=== PATIENT | male | born 1970 | race Caucasian/White ===

== ENCOUNTER 2020-06-13 15:47 | Inpatient (IN) | payer BC, OTHER ==
[2020-06-13] MEDS: Sodium Chloride 0.9% 10 ML Syringe FLUSH PRN ×2 (16:14→18:58)
[2020-06-13] MEDS ORDERED: Sodium Chloride 0.9% 1,000 ML IV SCH (17:45)
--- NOTE | 2020-06-13 18:03 | CR ---
Chest: 2 views of the chest were obtained. Comparison: Prior chest x-ray of 03/12/11. Patchy areas of increased density throughout both sides of the chest are seen. Heart is enlarged. Upper mediastinum is slightly prominent. Scoliosis is noted within the spine. Bony structures show nothing acute. Impression: 1. Patchy areas of increased density on both sides of the chest. Findings presumably representing diffuse areas of infection, most likely viral in etiology. Diagnostic code #5 Study was dictated in MDT
[2020-06-13] MEDS ORDERED: Iopamidol 755 Mg/ML 100 ML Bottle IVPUSH ONE (18:04)
[2020-06-13] MEDS ORDERED: Sodium Chloride 0.9% 100 ML IV SCH (18:15)
--- NOTE | 2020-06-13 18:59 | EDM.PDOC ---
ED HPI GENERAL MEDICAL PROBLEM - General Chief Complaint: Respiratory Problem Stated Complaint: COVID + Time Seen by Provider: 06/13/20 16:08 Source of Information: Reports: Patient History Limitations: Reports: No Limitations - History of Present Illness INITIAL COMMENTS - FREE TEXT/NARRATIVE: Patient is a 50-year-old male presenting to the emergency department with complaints of a two-week history of cough, congestion, shortness of breath, fever, fatigue, and loss of taste and smell. Patient states symptoms began on 30 May. He was tested for COVID and found out yesterday that he was positive. He has been doing home oxygen monitoring through [employer]. Patient was notified today that his oxygen saturations were low at 84% on room air. He was advised to come to the emergency department. Upon arrival to the emergency department, his oxygen saturation was found to be 77% on room air. Oxygen was applied at 4 L via nasal cannula and he did improve to 92%. Patient has a past medical history significant for high cholesterol, hypertension, and type 2 diabetes on metformin. - Related Data Allergies Allergy/AdvReac Type Severity Reaction Status Date / Time empagliflozin Allergy Mild Itching Verified 06/14/20 03:43 [From Jardiance] Home Meds: Home Meds Aspirin 81 mg PO DAILY 06/13/20 [History] Codeine Phosphate/Guaifenesin [Codeine-Guaifen 10-100 mg/5 ml] 5 ml PO Q4H PRN 06/13/20 [History] LORazepam [Lorazepam] 2 mg PO BEDTIME 06/13/20 [History] Metoprolol Tartrate [Lopressor] 100 mg PO DAILY 06/13/20 [History] Omeprazole 20 mg PO DAILY 06/13/20 [History] lisinopriL [Lisinopril] 10 mg PO DAILY 06/13/20 [History] metFORMIN HCl [Metformin HCl] 2,000 mg PO DAILY 06/13/20 [History] tadalafiL [Cialis] 2.5 mg PO DAILY PRN 06/13/20 [History] Past Medical History HEENT History: Reports: Other (See Below) Other HEENT History: pt wears glasses Cardiovascular History: Reports: High Cholesterol, Hypertension Respiratory History: Reports: Other (See Below) Other Respiratory History: currently has bilateral PNA Endocrine/Metabolic History: Reports: Diabetes, Type II - Infectious Disease History Infectious Disease History: Reports: Chicken Pox Social & Family History - Family History Family Medical History: Noncontributory - Tobacco Use Smoking Status *Q: Never Smoker Second Hand Smoke Exposure: No - Caffeine Use Caffeine Use: Reports: Soda - Recreational Drug Use Recreational Drug Use: No ED ROS GENERAL - Review of Systems Review Of Systems: See Below Constitutional: Reports: Fever, Chills, Weakness, Fatigue, Decreased Appetite HEENT: Reports: No Symptoms Respiratory: Reports: Shortness of Breath, Cough Cardiovascular: Reports: Dyspnea on Exertion. Denies: Chest Pain, Lightheadedne ss Endocrine: Reports: No Symptoms GI/Abdominal: Reports: No Symptoms. Denies: Abdominal Pain, Nausea, Vomiting : Reports: No Symptoms Musculoskeletal: Reports: Other (generalized body aches) Skin: Reports: No Symptoms Neurological: Reports: No Symptoms Psychiatric: Reports: No Symptoms Hematologic/Lymphatic: Reports: No Symptoms Immunologic: Reports: No Symptoms ED EXAM, GENERAL - Physical Exam Exam: See Below Exam Limited By: No Limitations General Appearance: Alert, WD/WN, No Apparent Distress Respiratory/Chest: No Respiratory Distress, Decreased Breath Sounds, Crackles (Throughout bilateral lungs), Wheezing (Intermittent throughout) Cardiovascular: Normal Peripheral Pulses, Regular Rate, Rhythm, No Edema, No Gallop, No JVD, No Murmur, No Rub Extremities: Normal Inspection, Normal Range of Motion, Non-Tender, Normal Capillary Refill, No Pedal Edema Neurological: Alert, Oriented, CN II-XII Intact, Normal Cognition, Normal Gait, Normal Reflexes, No Motor/Sensory Deficits Psychiatric: Normal Affect, Normal Mood Skin Exam: Warm, Dry, Intact, Normal Color, No Rash Course - Vital Signs Last Recorded V/S: Last Vital Signs Temp 98.4 F 06/14/20 04:24 Pulse 95 06/14/20 04:24 Resp 20 06/14/20 04:24 BP 151/89 H 06/14/20 04:24 Pulse Ox 91 L 06/14/20 06:15 - Orders/Labs/Meds Orders: Active Orders 24 hr Category Date Time Status CULTURE BLOOD [BC] Stat Lab 06/13/20 17:10 Received CULTURE BLOOD [BC] Stat Lab 06/13/20 17:30 Received Sodium Chloride 0.9% [Saline Flush] Med 06/13/20 16:08 Active 10 ml FLUSH ASDIRECTED PRN Blood Culture x2 Reflex Set [OM.PC] Stat Ot 06/13/20 16:11 Ordered Peripheral IV Insertion Adult [OM.PC] Stat Ot 06/13/20 16:08 Ordered Medication Orders Acetaminophen (Tylenol) 650 mg PO Q4H PRN PRN Reason: Pain (Mild 1-3)/fever Dexamethasone (Dexamethasone) 6 mg IVPUSH Q24H [facility] Stop: 06/22/20 20:01 Last Admin: 06/13/20 22:17 Dose: 6 mg Documented by: JOVAN Enoxaparin Sodium (Lovenox) 40 mg SUBCUT DAILY [facility] Last Admin: 06/14/20 11:13 Dose: 40 mg Documented by: BEN REMDESIVIR (EUA) 100 mg/ (Sodium Chloride) 100 mls @ 100 mls/hr IV Q24H [facility] Stop: 06/17/20 22:59 Tocilizumab 800 mg/ Sodium (Chloride) 100 mls @ 100 mls/hr IV Q12H [facility] Stop: 06/14/20 12:29 Last Admin: 06/14/20 11:14 Dose: 100 mls/hr Documented by: Infusion: 06/14/20 01:19 Dose: 100 mls/hr Documented by: Admin: 06/14/20 00:19 Dose: 100 mls/hr Documented by: JOVAN Sodium Chloride (Normal Saline) 1,000 mls @ 100 mls/hr IV ASDIRECTED [facility] Insulin Glargine (Lantus) 5 unit SUBCUT BEDTIME [facility] Last Admin: 06/13/20 22:19 Dose: 5 units Documented by: JOVAN Ondansetron HCl (Zofran Odt) 4 mg PO Q6H PRN PRN Reason: nausea, able to take PO Ondansetron HCl (Zofran) 4 mg IV Q6H PRN PRN Reason: Nausea/Vomiting Sodium Chloride (Saline Flush) 10 ml FLUSH ASDIRECTED PRN PRN Reason: Keep Vein Open Last Admin: 06/13/20 18:58 Dose: 10 ml Documented by: Admin: 06/13/20 16:14 Dose: 10 ml Documented by: RIGO Labs: Laboratory Tests 06/13/20 06/13/20 06/13/20 Range/Units 16:00 16:00 16:00 WBC 9.35 H (4.23-9.07) K/mm3 RBC 4.13 L (4.63-6.08) M/mm3 Hgb 12.1 L (13.7-17.5) gm/dl Hct 36.6 L (40.1-51.0) % MCV 88.6 (79.0-92.2) fl MCH 29.3 (25.7-32.2) pg MCHC 33.1 (32.2-35.5) g/dl RDW Std Deviation 42.1 (35.1-43.9) fL Plt Count 335 (163-337) K/mm3 MPV 9.9 (9.4-12.3) fl Neut % (Auto) 89.1 H (34.0-67.9) % Lymph % (Auto) 5.8 L (21.8-53.1) % [place] % (Auto) 4.8 L (5.3-12.2) % Eos % (Auto) 0 L (0.8-7.0) Baso % (Auto) 0.2 (0.1-1.2) % Neut # (Auto) 8.33 H (1.78-5.38) K/mm3 Lymph # (Auto) 0.54 L (1.32-3.57) K/mm3 [place] # (Auto) 0.45 (0.30-0.82) K/mm3 Eos # (Auto) 0.00 L (0.04-0.54) K/mm3 Baso # (Auto) 0.02 (0.01-0.08) K/mm3 Manual Slide Review Abnormal smear Percent Retic (0.51-1.81) % D-Dimer, Quantitative 1.96 H (0.19-0.50) mg/L Puncture Site ABG pH (7.35-7.45) ABG pCO2 (35.0-45.0) mmHg ABG pO2 (80.0-100.0) mmHg ABG HCO3 (22.0-26.0) meq/L ABG O2 Saturation (96.0-97.0) % ABG Base Excess (-2-2.0) [place] Test A-a Gradient mmHg O2 Delivery Device Oxygen Flow Rate FiO2 (21.00-100.00) % Sodium 130 L (136-145) mEq/L Potassium 3.6 (3.5-5.1) mEq/L Chloride 91 L (98-107) mEq/L Carbon Dioxide 27 (21-32) mEq/L Anion Gap 15.6 H (5-15) BUN 7 (7-18) mg/dL Creatinine 1.1 (0.7-1.3) mg/dL Est Cr Clr Drug Dosing 86.52 mL/min Estimated GFR (MDRD) > 60 (>60) mL/min BUN/Creatinine Ratio 6.4 L (14-18) Glucose 311 H (74-106) mg/dL Hemoglobin A1c (4.50-6.20) % Lactic Acid (0.4-2.0) mmol/L Calcium 9.1 (8.5-10.1) mg/dL Phosphorus (2.6-4.7) mg/dL Magnesium (1.8-2.4) mg/dl Ferritin (26-388) ng/ml Total Bilirubin 0.6 (0.2-1.0) mg/dL AST 32 (15-37) U/L ALT 36 (16-63) U/L Alkaline Phosphatase 69 (46-116) U/L Lactate Dehydrogenase 464 H (85-227) U/L Troponin I < 0.017 (0.00-0.056) ng/mL C-Reactive Protein (<1.0) mg/dL NT-Pro-B Natriuret Pep (0-125) pg/mL Total Protein 7.6 (6.4-8.2) g/dl Albumin 2.5 L (3.4-5.0) g/dl Globulin 5.1 gm/dL Albumin/Globulin Ratio 0.5 L (1-2) Vitamin B12 (193-986) pg/ml Folate (8.6-58.9) ng/mL Procalcitonin (<0.10) ng/mL Salicylates (2.8-20) mg/dL Acetaminophen (10-30) ug/mL Ketones (0.0-0.3) mM 06/13/20 06/13/20 06/13/20 Range/Units 16:00 16:00 16:00 WBC (4.23-9.07) K/mm3 RBC (4.63-6.08) M/mm3 Hgb (13.7-17.5) gm/dl Hct (40.1-51.0) % MCV (79.0-92.2) fl MCH (25.7-32.2) pg MCHC (32.2-35.5) g/dl RDW Std Deviation (35.1-43.9) fL Plt Count (163-337) K/mm3 MPV (9.4-12.3) fl Neut % (Auto) (34.0-67.9) % Lymph % (Auto) (21.8-53.1) % [place] % (Auto) (5.3-12.2) % Eos % (Auto) (0.8-7.0) Baso % (Auto) (0.1-1.2) % Neut # (Auto) (1.78-5.38) K/mm3 Lymph # (Auto) (1.32-3.57) K/mm3 [place] # (Auto) (0.30-0.82) K/mm3 Eos # (Auto) (0.04-0.54) K/mm3 Baso # (Auto) (0.01-0.08) K/mm3 Manual Slide Review Percent Retic (0.51-1.81) % D-Dimer, Quantitative (0.19-0.50) mg/L Puncture Site ABG pH (7.35-7.45) ABG pCO2 (35.0-45.0) mmHg ABG pO2 (80.0-100.0) mmHg ABG HCO3 (22.0-26.0) meq/L ABG O2 Saturation (96.0-97.0) % ABG Base Excess (-2-2.0) [place] Test A-a Gradient mmHg O2 Delivery Device Oxygen Flow Rate FiO2 (21.00-100.00) % Sodium (136-145) mEq/L Potassium (3.5-5.1) mEq/L Chloride (98-107) mEq/L Carbon Dioxide (21-32) mEq/L Anion Gap (5-15) BUN (7-18) mg/dL Creatinine (0.7-1.3) mg/dL Est Cr Clr Drug Dosing mL/min Estimated GFR (MDRD) (>60) mL/min BUN/Creatinine Ratio (14-18) Glucose (74-106) mg/dL Hemoglobin A1c (4.50-6.20) % Lactic Acid (0.4-2.0) mmol/L Calcium (8.5-10.1) mg/dL Phosphorus (2.6-4.7) mg/dL Magnesium (1.8-2.4) mg/dl Ferritin 464 H (26-388) ng/ml Total Bilirubin (0.2-1.0) mg/dL AST (15-37) U/L ALT (16-63) U/L Alkaline Phosphatase (46-116) U/L Lactate Dehydrogenase (85-227) U/L Troponin I (0.00-0.056) ng/mL C-Reactive Protein (<1.0) mg/dL NT-Pro-B Natriuret Pep 67 (0-125) pg/mL Total Protein (6.4-8.2) g/dl Albumin (3.4-5.0) g/dl Globulin gm/dL Albumin/Globulin Ratio (1-2) Vitamin B12 (193-986) pg/ml Folate (8.6-58.9) ng/mL Procalcitonin 0.65 H (<0.10) ng/mL Salicylates (2.8-20) mg/dL Acetaminophen (10-30) ug/mL Ketones (0.0-0.3) mM 06/13/20 06/13/20 06/13/20 Range/Units 16:00 16:00 16:00 WBC (4.23-9.07) K/mm3 RBC (4.63-6.08) M/mm3 Hgb (13.7-17.5) gm/dl Hct (40.1-51.0) % MCV (79.0-92.2) fl MCH (25.7-32.2) pg MCHC (32.2-35.5) g/dl RDW Std Deviation (35.1-43.9) fL Plt Count (163-337) K/mm3 MPV (9.4-12.3) fl Neut % (Auto) (34.0-67.9) % Lymph % (Auto) (21.8-53.1) % [place] % (Auto) (5.3-12.2) % Eos % (Auto) (0.8-7.0) Baso % (Auto) (0.1-1.2) % Neut # (Auto) (1.78-5.38) K/mm3 Lymph # (Auto) (1.32-3.57) K/mm3 [place] # (Auto) (0.30-0.82) K/mm3 Eos # (Auto) (0.04-0.54) K/mm3 Baso # (Auto) (0.01-0.08) K/mm3 Manual Slide Review Percent Retic 0.56 (0.51-1.81) % D-Dimer, Quantitative (0.19-0.50) mg/L Puncture Site ABG pH (7.35-7.45) ABG pCO2 (35.0-45.0) mmHg ABG pO2 (80.0-100.0) mmHg ABG HCO3 (22.0-26.0) meq/L ABG O2 Saturation (96.0-97.0) % ABG Base Excess (-2-2.0) [place] Test A-a Gradient mmHg O2 Delivery Device Oxygen Flow Rate FiO2 (21.00-100.00) % Sodium (136-145) mEq/L Potassium (3.5-5.1) mEq/L Chloride (98-107) mEq/L Carbon Dioxide (21-32) mEq/L Anion Gap (5-15) BUN (7-18) mg/dL Creatinine (0.7-1.3) mg/dL Est Cr Clr Drug Dosing mL/min Estimated GFR (MDRD) (>60) mL/min BUN/Creatinine Ratio (14-18) Glucose (74-106) mg/dL Hemoglobin A1c (4.50-6.20) % Lactic Acid (0.4-2.0) mmol/L Calcium (8.5-10.1) mg/dL Phosphorus 1.8 L (2.6-4.7) mg/dL Magnesium 2.2 (1.8-2.4) mg/dl Ferritin (26-388) ng/ml Total Bilirubin (0.2-1.0) mg/dL AST (15-37) U/L ALT (16-63) U/L Alkaline Phosphatase (46-116) U/L Lactate Dehydrogenase (85-227) U/L Troponin I (0.00-0.056) ng/mL C-Reactive Protein (<1.0) mg/dL NT-Pro-B Natriuret Pep (0-125) pg/mL Total Protein (6.4-8.2) g/dl Albumin (3.4-5.0) g/dl Globulin gm/dL Albumin/Globulin Ratio (1-2) Vitamin B12 501 (193-986) pg/ml Folate 18.6 (8.6-58.9) ng/mL Procalcitonin (<0.10) ng/mL Salicylates (2.8-20) mg/dL Acetaminophen (10-30) ug/mL Ketones (0.0-0.3) mM 06/13/20 06/13/20 06/13/20 Range/Units 16:00 16:00 16:00 WBC (4.23-9.07) K/mm3 RBC (4.63-6.08) M/mm3 Hgb (13.7-17.5) gm/dl Hct (40.1-51.0) % MCV (79.0-92.2) fl MCH (25.7-32.2) pg MCHC (32.2-35.5) g/dl RDW Std Deviation (35.1-43.9) fL Plt Count (163-337) K/mm3 MPV (9.4-12.3) fl Neut % (Auto) (34.0-67.9) % Lymph % (Auto) (21.8-53.1) % [place] % (Auto) (5.3-12.2) % Eos % (Auto) (0.8-7.0) Baso % (Auto) (0.1-1.2) % Neut # (Auto) (1.78-5.38) K/mm3 Lymph # (Auto) (1.32-3.57) K/mm3 [place] # (Auto) (0.30-0.82) K/mm3 Eos # (Auto) (0.04-0.54) K/mm3 Baso # (Auto) (0.01-0.08) K/mm3 Manual Slide Review Percent Retic (0.51-1.81) % D-Dimer, Quantitative (0.19-0.50) mg/L Puncture Site ABG pH (7.35-7.45) ABG pCO2 (35.0-45.0) mmHg ABG pO2 (80.0-100.0) mmHg ABG HCO3 (22.0-26.0) meq/L ABG O2 Saturation (96.0-97.0) % ABG Base Excess (-2-2.0) [place] Test A-a Gradient mmHg O2 Delivery Device Oxygen Flow Rate FiO2 (21.00-100.00) % Sodium (136-145) mEq/L Potassium (3.5-5.1) mEq/L Chloride (98-107) mEq/L Carbon Dioxide (21-32) mEq/L Anion Gap (5-15) BUN (7-18) mg/dL Creatinine (0.7-1.3) mg/dL Est Cr Clr Drug Dosing mL/min Estimated GFR (MDRD) (>60) mL/min BUN/Creatinine Ratio (14-18) Glucose (74-106) mg/dL Hemoglobin A1c (4.50-6.20) % Lactic Acid (0.4-2.0) mmol/L Calcium (8.5-10.1) mg/dL Phosphorus (2.6-4.7) mg/dL Magnesium (1.8-2.4) mg/dl Ferritin (26-388) ng/ml Total Bilirubin (0.2-1.0) mg/dL AST (15-37) U/L ALT (16-63) U/L Alkaline Phosphatase (46-116) U/L Lactate Dehydrogenase (85-227) U/L Troponin I (0.00-0.056) ng/mL C-Reactive Protein (<1.0) mg/dL NT-Pro-B Natriuret Pep (0-125) pg/mL Total Protein (6.4-8.2) g/dl Albumin (3.4-5.0) g/dl Globulin gm/dL Albumin/Globulin Ratio (1-2) Vitamin B12 (193-986) pg/ml Folate (8.6-58.9) ng/mL Procalcitonin (<0.10) ng/mL Salicylates 1.0 L (2.8-20) mg/dL Acetaminophen 0 L (10-30) ug/mL Ketones 0.29 (0.0-0.3) mM 06/13/20 06/13/20 06/13/20 Range/Units 16:20 17:10 17:10 WBC (4.23-9.07) K/mm3 RBC (4.63-6.08) M/mm3 Hgb (13.7-17.5) gm/dl Hct (40.1-51.0) % MCV (79.0-92.2) fl MCH (25.7-32.2) pg MCHC (32.2-35.5) g/dl RDW Std Deviation (35.1-43.9) fL Plt Count (163-337) K/mm3 MPV (9.4-12.3) fl Neut % (Auto) (34.0-67.9) % Lymph % (Auto) (21.8-53.1) % [place] % (Auto) (5.3-12.2) % Eos % (Auto) (0.8-7.0) Baso % (Auto) (0.1-1.2) % Neut # (Auto) (1.78-5.38) K/mm3 Lymph # (Auto) (1.32-3.57) K/mm3 [place] # (Auto) (0.30-0.82) K/mm3 Eos # (Auto) (0.04-0.54) K/mm3 Baso # (Auto) (0.01-0.08) K/mm3 Manual Slide Review Percent Retic (0.51-1.81) % D-Dimer, Quantitative (0.19-0.50) mg/L Puncture Site Rt radial ABG pH 7.51 H (7.35-7.45) ABG pCO2 34.3 L (35.0-45.0) mmHg ABG pO2 70.0 L (80.0-100.0) mmHg ABG HCO3 27.1 H (22.0-26.0) meq/L ABG O2 Saturation 91.6 L (96.0-97.0) % ABG Base Excess 4.4 H (-2-2.0) [place] Test Positive A-a Gradient 144 mmHg O2 Delivery Device Nasal cannula Oxygen Flow Rate 4.0 FiO2 36.00 (21.00-100.00) % Sodium (136-145) mEq/L Potassium (3.5-5.1) mEq/L Chloride (98-107) mEq/L Carbon Dioxide (21-32) mEq/L Anion Gap (5-15) BUN (7-18) mg/dL Creatinine (0.7-1.3) mg/dL Est Cr Clr Drug Dosing mL/min Estimated GFR (MDRD) (>60) mL/min BUN/Creatinine Ratio (14-18) Glucose (74-106) mg/dL Hemoglobin A1c (4.50-6.20) % Lactic Acid 1.7 (0.4-2.0) mmol/L Calcium (8.5-10.1) mg/dL Phosphorus (2.6-4.7) mg/dL Magnesium (1.8-2.4) mg/dl Ferritin (26-388) ng/ml Total Bilirubin (0.2-1.0) mg/dL AST (15-37) U/L ALT (16-63) U/L Alkaline Phosphatase (46-116) U/L Lactate Dehydrogenase (85-227) U/L Troponin I (0.00-0.056) ng/mL C-Reactive Protein 42.2 H* (<1.0) mg/dL NT-Pro-B Natriuret Pep (0-125) pg/mL Total Protein (6.4-8.2) g/dl Albumin (3.4-5.0) g/dl Globulin gm/dL Albumin/Globulin Ratio (1-2) Vitamin B12 (193-986) pg/ml Folate (8.6-58.9) ng/mL Procalcitonin (<0.10) ng/mL Salicylates (2.8-20) mg/dL Acetaminophen (10-30) ug/mL Ketones (0.0-0.3) mM 06/13/20 Range/Units 17:18 WBC (4.23-9.07) K/mm3 RBC (4.63-6.08) M/mm3 Hgb (13.7-17.5) gm/dl Hct (40.1-51.0) % MCV (79.0-92.2) fl MCH (25.7-32.2) pg MCHC (32.2-35.5) g/dl RDW Std Deviation (35.1-43.9) fL Plt Count (163-337) K/mm3 MPV (9.4-12.3) fl Neut % (Auto) (34.0-67.9) % Lymph % (Auto) (21.8-53.1) % [place] % (Auto) (5.3-12.2) % Eos % (Auto) (0.8-7.0) Baso % (Auto) (0.1-1.2) % Neut # (Auto) (1.78-5.38) K/mm3 Lymph # (Auto) (1.32-3.57) K/mm3 [place] # (Auto) (0.30-0.82) K/mm3 Eos # (Auto) (0.04-0.54) K/mm3 Baso # (Auto) (0.01-0.08) K/mm3 Manual Slide Review Percent Retic (0.51-1.81) % D-Dimer, Quantitative (0.19-0.50) mg/L Puncture Site ABG pH (7.35-7.45) ABG pCO2 (35.0-45.0) mmHg ABG pO2 (80.0-100.0) mmHg ABG HCO3 (22.0-26.0) meq/L ABG O2 Saturation (96.0-97.0) % ABG Base Excess (-2-2.0) [place] Test A-a Gradient mmHg O2 Delivery Device Oxygen Flow Rate FiO2 (21.00-100.00) % Sodium (136-145) mEq/L Potassium (3.5-5.1) mEq/L Chloride (98-107) mEq/L Carbon Dioxide (21-32) mEq/L Anion Gap (5-15) BUN (7-18) mg/dL Creatinine (0.7-1.3) mg/dL Est Cr Clr Drug Dosing mL/min Estimated GFR (MDRD) (>60) mL/min BUN/Creatinine Ratio (14-18) Glucose (74-106) mg/dL Hemoglobin A1c 8.50 H (4.50-6.20) % Lactic Acid (0.4-2.0) mmol/L Calcium (8.5-10.1) mg/dL Phosphorus (2.6-4.7) mg/dL Magnesium (1.8-2.4) mg/dl Ferritin (26-388) ng/ml Total Bilirubin (0.2-1.0) mg/dL AST (15-37) U/L ALT (16-63) U/L Alkaline Phosphatase (46-116) U/L Lactate Dehydrogenase (85-227) U/L Troponin I (0.00-0.056) ng/mL C-Reactive Protein (<1.0) mg/dL NT-Pro-B Natriuret Pep (0-125) pg/mL Total Protein (6.4-8.2) g/dl Albumin (3.4-5.0) g/dl Globulin gm/dL Albumin/Globulin Ratio (1-2) Vitamin B12 (193-986) pg/ml Folate (8.6-58.9) ng/mL Procalcitonin (<0.10) ng/mL Salicylates (2.8-20) mg/dL Acetaminophen (10-30) ug/mL Ketones (0.0-0.3) mM Meds: Medications Generic Name Dose Route Start Last Admin Trade Name Freq PRN Reason Stop Dose Admin Acetaminophen 650 mg 06/13/20 19:26 Tylenol PO Q4H PRN Pain (Mild 1-3)/fever Dexamethasone 6 mg 06/13/20 20:00 06/13/20 22:17 Dexamethasone IVPUSH 06/22/20 20:01 6 mg Q24H MARLINE Administration Enoxaparin Sodium 40 mg 06/14/20 09:00 06/14/20 11:13 Lovenox SUBCUT 40 mg DAILY MARLINE Administration REMDESIVIR (EUA) 100 mg/ 100 mls @ 100 mls/hr 06/14/20 22:00 Sodium Chloride IV 06/17/20 22:59 Q24H MARLINE Tocilizumab 800 mg/ Sodium 100 mls @ 100 mls/hr 06/13/20 23:30 06/14/20 11:14 Chloride IV 06/14/20 12:29 100 mls/hr Q12H MARLINE Administration Sodium Chloride 1,000 mls @ 100 mls/hr 06/14/20 07:45 Normal Saline IV ASDIRECTED MARLINE Insulin Glargine 5 unit 06/13/20 21:00 06/13/20 22:19 Lantus SUBCUT 5 units BEDTIME MARLINE Administration Ondansetron HCl 4 mg 06/13/20 19:26 Zofran Odt PO Q6H PRN nausea, able to take PO Ondansetron HCl 4 mg 06/13/20 19:26 Zofran IV Q6H PRN Nausea/Vomiting Sodium Chloride 10 ml 06/13/20 16:08 06/13/20 18:58 Saline Flush FLUSH 10 ml ASDIRECTED PRN Administration Keep Vein Open Discontinued Medications Generic Name Dose Route Start Last Admin Trade Name Freq PRN Reason Stop Dose Admin Albuterol Confirm 06/14/20 06:05 06/14/20 06:21 Proventil Neb Soln Administered 06/14/20 06:06 2.5 mg Dose Administration 2.5 mg .ROUTE .STK-MED ONE Sodium Chloride 1,000 mls @ 100 mls/hr 06/13/20 17:45 06/13/20 20:10 Normal Saline IV 70 mls/hr ASDIRECTED MARLINE Infusion Sodium Chloride 100 mls @ 70 mls/hr 06/13/20 18:15 Normal Saline IV ASDIRECTED MARLINE REMDESIVIR (EUA) 200 mg/ 250 mls @ 250 mls/hr 06/13/20 19:37 06/13/20 22:16 Sodium Chloride IV 06/13/20 19:38 250 mls/hr ONETIME STA Administration Iopamidol 100 ml 06/13/20 18:04 06/13/20 18:58 Isovue-370 (76%) IVPUSH 06/13/20 18:05 100 ml ONETIME ONE Administration Sodium Chloride 4 ml 06/14/20 06:00 06/14/20 06:11 Sodium Chloride 3% NEB 06/14/20 06:01 4 ml ONETIME ONE Administration Tocilizumab 800 mg 06/13/20 21:00 Actemra IV 06/14/20 09:01 Q12HR MARLINE - Re-Assessments/Exams Free Text/Narrative Re-Assessment/Exam: 06/13/20 1800 Hematology was significant for a WBC minimally elevated at 9.35, hemoglobin 12.1, d-dimer 1.96, sodium 130 chloride 91, gap 15.6, glucose 311, phosphorus 1.8, ferritins 464, LDH 464, CRP 42.2. ABGs on 4 L of oxygen by nasal cannula showed a pH of 7.51, CO2 34.3, O2 70, bicarb 27.1, total oxygen saturation 91.6 with a base excess of 4.4. I have ordered a CT angiogram of the chest. Once these results are available, I will call and speak with hospitalist, Dr. Rossi to discuss admission. 06/13/201909 CT angiogram of the chest showed diffuse patchy areas of consolidation within both lungs compatible with viral pneumonia. There is no evidence of pulmonary embolism. Discussed case with hospitalist, Dr. Rossi, and she has accepted the patient for admission. Departure - Departure Time of Disposition: 19:10 Disposition: Admitted As Inpatient 67 Clinical Impression: Acute hypoxemic respiratory failure due to COVID-19 - Discharge Information Sepsis Event Note (ED) - Evaluation Sepsis Screening Result: No Definite Risk - My Orders Last 24 Hours: My Active Orders 06/13/20 16:08 Sodium Chloride 0.9% [Saline Flush] 10 ml FLUSH ASDIRECTED PRN Peripheral IV Insertion Adult [OM.PC] Stat 06/13/20 16:11 Blood Culture x2 Reflex Set [OM.PC] Stat 06/13/20 17:10 CULTURE BLOOD [BC] Stat 06/13/20 17:30 CULTURE BLOOD [BC] Stat - Assessment/Plan Last 24 Hours: My Active Orders 06/13/20 16:08 Sodium Chloride 0.9% [Saline Flush] 10 ml FLUSH ASDIRECTED PRN Peripheral IV Insertion Adult [OM.PC] Stat 06/13/20 16:11 Blood Culture x2 Reflex Set [OM.PC] Stat 06/13/20 17:10 CULTURE BLOOD [BC] Stat 06/13/20 17:30 CULTURE BLOOD [BC] Stat
--- NOTE | 2020-06-13 19:01 | CT ---
CT chest Technique: Multiple axial sections of the chest were obtained. Study performed as a pulmonary angiogram protocol. Reconstructed coronal and sagittal images were obtained. Findings: Pulmonary arteries are well-opacified. No filling defects are seen to indicate pulmonary embolism. Patchy areas of consolidation are seen throughout both lungs. Findings are compatible with viral pneumonia. No pleural effusions are seen. Moderately large hiatal hernia is noted. Mild coronary artery calcification seen. Aorta shows no aneurysm. Mediastinum shows no adenopathy Bone window settings were reviewed. No acute osseous finding is appreciated. Impression: 1. No findings of pulmonary embolism. 2. Diffuse patchy areas of consolidation within both lungs compatible with viral pneumonia. 3. Other nonacute findings as noted above. Diagnostic code #5 Study was dictated in MDT
--- NOTE | 2020-06-13 19:22 | PCM.HP.2 ---
H&P History of Present Illness - General Date of Service: 06/13/20 - History of Present Illness Initial Comments - Free Text/Narative: This is a 50-year old male with past medical history of diabetes and hypertension who was sent to the ED by primary care provider's clinic for hy poxemia. As per patient he started having shortness of breath 2 weeks ago accompanied with decreased appetite, fevers, loss of taste, difficulty sleeping and productive cough of thick clear sputum Once symptoms were not improving, he went to walk-in clinic for evaluation. At that time a CXR was performed and he was diagnosed with pneumonia and sent home with Zpack and PRN inhaler q4h, he was also tested for COVID. Called yesterday and told he was positive for COVID, home pulse oximetry sent. He was called today and told his oxygen level was too low and told to come to the ED for further evaluation. - Related Data Allergies/Adverse Reactions: Allergies Allergy/AdvReac Type Severity Reaction Status Date / Time empagliflozin Allergy Severe Itching Verified 06/13/20 20:11 [From [facility]cial] Home Medications: Home Meds Aspirin 81 mg PO DAILY 06/13/20 [History] Codeine Phosphate/Guaifenesin [Codeine-Guaifen 10-100 mg/5 ml] 5 ml PO Q4H PRN 06/13/20 [History] LORazepam [Lorazepam] 2 mg PO BEDTIME 06/13/20 [History] Metoprolol Tartrate [Lopressor] 100 mg PO DAILY 06/13/20 [History] Omeprazole 20 mg PO DAILY 06/13/20 [History] lisinopriL [Lisinopril] 10 mg PO DAILY 06/13/20 [History] metFORMIN HCl [Metformin HCl] 2,000 mg PO DAILY 06/13/20 [History] tadalafiL [Cialis] 2.5 mg PO DAILY PRN 06/13/20 [History] Past Medical History HEENT History: Reports: Other (See Below) Other HEENT History: pt wears glasses Cardiovascular History: Reports: High Cholesterol, Hypertension Respiratory History: Reports: Other (See Below) Other Respiratory History: currently has bilateral PNA Endocrine/Metabolic History: Reports: Diabetes, Type II - Infectious Disease History Infectious Disease History: Reports: Chicken Pox Social & Family History - Family History Family Medical History: Noncontributory - Tobacco Use Smoking Status *Q: Never Smoker Second Hand Smoke Exposure: No - Caffeine Use Caffeine Use: Reports: Soda - Recreational Drug Use Recreational Drug Use: No H&P Review of Systems - Review of Systems: Review Of Systems: See Below General: Reports: Fever (104 tuesday), Chills, Malaise, Weakness, Fatigue, Diaphoresis, Decreased Appetite HEENT: Reports: Post Nasal Drip, Sinus Congestion, Sore Throat. Denies: Dysphasia, Headaches, Rhinitis Pulmonary: Reports: Shortness of Breath, Wheezing, Pleuritic Chest Pain, Cough, Sputum (thick clear) Cardiovascular: Reports: Palpitations, Dyspnea on Exertion, Orthopnea, PND, L ightheadedness, Syncope (near syncope when leaving the clinic). Denies: Chest Pain, Edema Gastrointestinal: Reports: Anorexia, Decreased Appetite, Distension. Denies: Abdominal Pain, Constipation, Diarrhea, Difficulty Swallowing, Nausea, Vomiting Genitourinary: Denies: Dysuria, Frequency, Burning, Pain, Urgency Musculoskeletal: Denies: Joint Pain, Joint Swelling, Muscle Pain, Muscle Stiffness Skin: Reports: Diaphoresis. Denies: Cyanosis, Jaundice, Mottled, Pallor Psychiatric: Reports: Anxiety. Denies: Depression Exam - Exam Exam: See Below - Vital Signs Vital Signs: Last Vital Signs Temp 101.2 F H 06/13/20 15:52 Pulse 130 H 06/13/20 15:52 Resp 25 H 06/13/20 15:52 BP 143/89 H 06/13/20 15:52 Pulse Ox 77 L 06/13/20 15:52 Weight: 87.543 kg - Exam Quality Assessment: Supplemental Oxygen General: Alert, Oriented, Moderate Distress HEENT: Conjunctiva Clear (injected and erythematous), EOMI, Mucosa Moist & [place], Nares Patent Neck: Supple, Trachea Midline, +2 Carotid Pulse wo Bruit, Full Range of Motion. No: Lymphadenopathy Lungs: Decreased Breath Sounds, Crackles, Wheezing. No: Rales, Rhonchi, Rub, Stridor Cardiovascular: Regular Rate, Regular Rhythm. No: Systolic Murmur, Diastolic Murmur, Rubs, Gallop/S3, Gallop/S4 GI/Abdominal Exam: Normal Bowel Sounds, Soft, Non-Tender, Distended. No: Guarding, Rigid, Rebound Back Exam: Normal Inspection. No: CVA Tenderness (L), CVA Tenderness (R), Paraspinal Tenderness, Vertebral Tenderness Extremities: Normal Inspection, Normal Range of Motion, Non-Tender, No Pedal Edema, Normal Capillary Refill Peripheral Pulses: 2+: Radial (L), Radial (R), Dorsalis Pedis (L), Dorsalis Pedis (R) Skin: Warm, Dry, Intact Neuro Extensive - Mental Status: Alert, Oriented x3, Normal Cognition, Memory Intact Psychiatric: Normal Affect, Normal Mood - Patient Data Result Diagrams: 06/13/20 16:00 06/13/20 16:00 Sepsis Event Note - Evaluation Sepsis Screening Result: No Definite Risk - Problem List (1) Pneumonia due to COVID-19 virus SNOMED Code(s): 200234466 ICD Code: U07.1 - COVID-19; J12.89 - OTHER VIRAL PNEUMONIA Status: Acute Current Visit: Yes (2) Acute hypoxemic respiratory failure due to COVID-19 SNOMED Code(s): 136823704 ICD Code: U07.1 - COVID-19; J96.01 - ACUTE RESPIRATORY FAILURE WITH HYPOXIA Status: Acute Current Visit: Yes (3) Bilateral pneumonia SNOMED Code(s): 165441569 ICD Code: J18.9 - PNEUMONIA, UNSPECIFIED ORGANISM Status: Acute Current Visit: Yes (4) Hypertension SNOMED Code(s): 47685641 ICD Code: I10 - ESSENTIAL (PRIMARY) HYPERTENSION Status: Acute Current Visit: Yes (5) Diabetes mellitus SNOMED Code(s): 33180612 ICD Code: E11.9 - TYPE 2 DIABETES MELLITUS WITHOUT COMPLICATIONS Status: Acute Current Visit: Yes (6) Dyslipidemia SNOMED Code(s): 688557681 ICD Code: E78.5 - HYPERLIPIDEMIA, UNSPECIFIED Status: Acute Current Visit: Yes (7) Fever due to COVID-19 SNOMED Code(s): 316322540 ICD Code: U07.1 - COVID-19; R50.9 - FEVER, UNSPECIFIED Status: Acute Current Visit: Yes (8) Normocytic normochromic anemia SNOMED Code(s): 81732282 ICD Code: D64.9 - ANEMIA, UNSPECIFIED Status: Acute Current Visit: Yes (9) Hyponatremia SNOMED Code(s): 78227187 ICD Code: E87.1 - HYPO-OSMOLALITY AND HYPONATREMIA Status: Acute Current Visit: Yes (10) High anion gap metabolic acidosis SNOMED Code(s): 76276135 ICD Code: E87.2 - ACIDOSIS Status: Acute Current Visit: Yes (11) Metabolic alkalosis SNOMED Code(s): 4941873 ICD Code: E87.3 - ALKALOSIS Status: Acute Current Visit: Yes (12) Respiratory alkalosis SNOMED Code(s): 220302236 ICD Code: E87.3 - ALKALOSIS Status: Acute Current Visit: Yes (13) Tachycardia SNOMED Code(s): 1271484 ICD Code: R00.0 - TACHYCARDIA, UNSPECIFIED Status: Acute Current Visit: Yes (14) Tachypnea SNOMED Code(s): 279121970 ICD Code: R06.82 - TACHYPNEA, NOT ELSEWHERE CLASSIFIED Status: Acute Current Visit: Yes (15) Acute respiratory distress syndrome (ARDS) due to 2019 novel coronavirus SNOMED Code(s): 518475704 ICD Code: U07.1 - COVID-19; J80 - ACUTE RESPIRATORY DISTRESS SYNDROME Status: Acute Current Visit: Yes Problem List Initiated/Reviewed/Updated: Yes Assessment/Plan Comment:: ASSESSMENT - Symptoms started 2 weeks ago, shortness of breath - Productive cough of thick clear sputum - Decreased appetite, unable to sleep, - Clinic appointment on Tuesday - CXR + COVID - Diagnosed with pneumonia and discharged on azithromycin and q4h inhaler as needed - Completed azithromycin today and has been using inhaler q4h - COVID reported positive yesterday--> given home pulse oximeter - Called today with pulse oximetry at 80% on RA and referred to ED - Upon admission to ED pulse ox on RA 77% - BP 143/89 (107); HR 130x'; RR 25x'; T 101.2 - Placed on 4L NC - Labs on admission: - CBC: WBC 9.35 (N-89, L-5.8%), Hb 12.1, Hct 36.6, plt 335 - Chemistry: Na 130, K 3.6, Cl 91, CO2 27, BUN 7, Cr 1.1, GFR >60, Glucose 311, Ca 9.1, Mg 2.2, PO4 1.8, AG 15.7 - LFTs: T bili 0.6, AST 32, ALT 36, AP 69, T.prot 7.6, Albumin 2.5 - ABGs: 7.51/34.3/70/27/91.6 @ 36% - PaO2/FiO2: 254, mild ARDS - CT chest with bilateral patchy infiltrates throughout, no PE - On physical exam patient in obvious respiratory distress - Minimal air entry heard only as wheezing PLAN Bilateral pneumonia due to COVID-19 virus Acute hypoxemic respiratory failure due to COVID-19 Respiratory alkalosis Mild ARDS - Start Remdesivir loading dose today, maintenance tomorrow to complete 4 days total - Start daily dexamethasone to complete 10 days - Start Actemra x2 doses every 12 hours - Convalescent plasma in AM - Induced sputum in AM - ABGs in AM - Continue O2 supplementation, goal O2 sat >92% - Albuterol inhaler q4h PRN - Procalcitonin q48h - COVID labs AM - F/U cultures from ED - Keep I/Os balance negative or neutral High anion gap metabolic acidosis Metabolic alkalosis Hyponatremia - Tylenol, salicylates and ketones level ordered - Start NS Normocytic normochromic anemia - Anemia work-up ordered - Goal Hb > 7 Diabetes mellitus, unknown HbA1c - Scheduled Accuchecks - Levemir 5u at bedtime for now - Hypoglycemia protocol - New HbA1c - Hold metformin Hypertension - Continue home lisinopril - PRN hydralazine PROPHYLAXIS DVT-Lovenox GI- continue home omeprazole CODE STATUS: FULL CODE DISPOSITION: Patient will be admitted on O2 supplementation and COVID treatment. LOS will be at least 5 days as per days required of Remdesivir. - Mortality Measure Prognosis:: Good
[2020-06-13] MEDS ORDERED: Ondansetron 4 MG/2 ML SDV IV PRN (19:26)
[2020-06-13] MEDS ORDERED: Acetaminophen 325 MG Tab PO PRN (19:26)
[2020-06-13] MEDS ORDERED: Ondansetron 4 MG Tab.DIS PO PRN (19:26)
[2020-06-13 20:01] LABS: HEMOGLOBIN A1C 8.5 % (4.50-6.20)
[2020-06-13] MEDS ORDERED: Insulin Glarg,Human.Rec.Analog 100 Unit/ML SUBCUT SCH (21:00)
[2020-06-13] MEDS ORDERED: Tocilizumab 400 MG/20 ML SDV IV SCH (21:00)
[2020-06-13] MEDS: Dexamethasone 4 MG/ML SDV IVPUSH SCH (22:17)
[2020-06-14] MEDS ORDERED: Sodium Chloride 3% Inhalation Soln 4 ML Neb NEB ONE (06:00)
[2020-06-14] MEDS ORDERED: Albuterol 0.083% 2.5 MG/3 ML Neb Soln ONE (06:05)
--- NOTE | 2020-06-14 10:26 | PCM.PN ---
- General Info Date of Service: 06/14/20 Subjective Update: Last bowel movement 3 days ago Shortness of breath and cough improved Sputum amount the same No new complaints - Patient Data Vitals - Most Recent: Last Vital Signs Temp 98.4 F 06/14/20 04:24 Pulse 95 06/14/20 04:24 Resp 20 06/14/20 04:24 BP 151/89 H 06/14/20 04:24 Pulse Ox 91 L 06/14/20 06:15 Weight - Most Recent: 87.679 kg - Exam Quality Assessment: Supplemental Oxygen General: Alert, Oriented, Cooperative, Mild Distress HEENT: Pupils Equal, Pupils Reactive, EOMI, Mucous Membr. Moist/[place] Neck: Supple, Trachea Midline. No: Lymphadenopathy Lungs: Decreased Breath Sounds (Significantly decreased in posterior chest, only able to auscultate wheezing ), Wheezing Cardiovascular: Regular Rate, Regular Rhythm. No: Tachycardia, Murmurs, Gallops, Rubs GI/Abdominal Exam: Normal Bowel Sounds, Soft, Non-Tender. No: Distended, Guarding, Rigid, Rebound Back Exam: Normal Inspection. No: CVA Tenderness (L), CVA Tenderness (R), Paraspinal Tenderness, Vertebral Tenderness Extremities: Normal Inspection, Normal Range of Motion, Non-Tender, No Pedal Edema, Normal Capillary Refill Peripheral Pulses: 2+: Radial (L), Radial (R), Dorsalis Pedis (L), Dorsalis Pedis (R) Skin: Warm, Dry Neurological: No New Focal Deficit Psy/Mental Status: Normal Affect, Normal Mood Sepsis Event Note - Evaluation Sepsis Screening Result: Sepsis Risk - Problem List & Annotations (1) Pneumonia due to COVID-19 virus SNOMED Code(s): 373104718 Code(s): U07.1 - COVID-19; J12.89 - OTHER VIRAL PNEUMONIA Status: Acute Current Visit: Yes (2) Acute hypoxemic respiratory failure due to COVID-19 SNOMED Code(s): 006254445 Code(s): U07.1 - COVID-19; J96.01 - ACUTE RESPIRATORY FAILURE WITH HYPOXIA Status: Acute Current Visit: Yes (3) Bilateral pneumonia SNOMED Code(s): 766826238 Code(s): J18.9 - PNEUMONIA, UNSPECIFIED ORGANISM Status: Acute Current Visit: Yes (4) Hypertension SNOMED Code(s): 68865678 Code(s): I10 - ESSENTIAL (PRIMARY) HYPERTENSION Status: Acute Current Visit: Yes (5) Diabetes mellitus SNOMED Code(s): 46183714 Code(s): E11.9 - TYPE 2 DIABETES MELLITUS WITHOUT COMPLICATIONS Status: Acute Current Visit: Yes (6) Dyslipidemia SNOMED Code(s): 757899501 Code(s): E78.5 - HYPERLIPIDEMIA, UNSPECIFIED Status: Acute Current Visit: Yes (7) Fever due to COVID-19 SNOMED Code(s): 191618702 Code(s): U07.1 - COVID-19; R50.9 - FEVER, UNSPECIFIED Status: Acute Current Visit: Yes (8) Normocytic normochromic anemia SNOMED Code(s): 87759083 Code(s): D64.9 - ANEMIA, UNSPECIFIED Status: Acute Current Visit: Yes (9) Hyponatremia SNOMED Code(s): 21975459 Code(s): E87.1 - HYPO-OSMOLALITY AND HYPONATREMIA Status: Acute Current Visit: Yes (10) High anion gap metabolic acidosis SNOMED Code(s): 36105654 Code(s): E87.2 - ACIDOSIS Status: Acute Current Visit: Yes (11) Metabolic alkalosis SNOMED Code(s): 4231971 Code(s): E87.3 - ALKALOSIS Status: Acute Current Visit: Yes (12) Respiratory alkalosis SNOMED Code(s): 270261853 Code(s): E87.3 - ALKALOSIS Status: Acute Current Visit: Yes (13) Tachycardia SNOMED Code(s): 5912513 Code(s): R00.0 - TACHYCARDIA, UNSPECIFIED Status: Acute Current Visit: Yes (14) Tachypnea SNOMED Code(s): 458946301 Code(s): R06.82 - TACHYPNEA, NOT ELSEWHERE CLASSIFIED Status: Acute Current Visit: Yes (15) Acute respiratory distress syndrome (ARDS) due to 2019 novel coronavirus SNOMED Code(s): 417109470 Code(s): U07.1 - COVID-19; J80 - ACUTE RESPIRATORY DISTRESS SYNDROME Status: Acute Current Visit: Yes - Problem List Review Problem List Initiated/Reviewed/Updated: Yes - Assessment Assessment:: ASSESSMENT - Symptoms started 2 weeks ago, shortness of breath - Productive cough of thick clear sputum - Decreased appetite, unable to sleep, - Clinic appointment on Tuesday - CXR + COVID - Diagnosed with pneumonia and discharged on azithromycin and q4h inhaler as needed - Completed azithromycin today and has been using inhaler q4h - COVID reported positive yesterday--> given home pulse oximeter - Called today with pulse oximetry at 80% on RA and referred to ED - Upon admission to ED pulse ox on RA 77% - BP 143/89 (107); HR 130x'; RR 25x'; T 101.2 - Placed on 4L NC - Labs on admission: - CBC: WBC 9.35 (N-89, L-5.8%), Hb 12.1, Hct 36.6, plt 335 - Chemistry: Na 130, K 3.6, Cl 91, CO2 27, BUN 7, Cr 1.1, GFR >60, Glucose 311, Ca 9.1, Mg 2.2, PO4 1.8, AG 15.7 - LFTs: T bili 0.6, AST 32, ALT 36, AP 69, T.prot 7.6, Albumin 2.5 - ABGs: 7.51/34.3/70/27/91.6 @ 36% - PaO2/FiO2: 254, mild ARDS - CT chest with bilateral patchy infiltrates throughout, no PE - On physical exam patient in obvious respiratory distress - Minimal air entry heard only as wheezing PLAN - Start Remdesivir loading dose today, maintenance tomorrow to complete 4 days total - Start daily dexamethasone to complete 10 days - Start Actemra x2 doses every 12 hours - Convalescent plasma in AM - Induced sputum in AM - ABGs in AM - Continue O2 supplementation, goal O2 sat >92% - Albuterol inhaler q4h PRN - Procalcitonin q48h - COVID labs AM - F/U cultures from ED - Keep I/Os balance negative or neutral - Start NS - Anemia work-up ordered - Goal Hb > 7 - Scheduled Accuchecks - Levemir 5u at bedtime for now - Hypoglycemia protocol - New HbA1c - Hold metformin - Continue home lisinopril - PRN hydralazine Patient will be admitted on O2 supplementation and COVID treatment. LOS will be at least 5 days as per days required of Remdesivir. 06/14/20 Inflammatory markers trending down VS stable Oxygenation stable without any increased requirements Electrolytes improved A1c likely higher as patient is anemic Afebrile since admission VS trend - BP: 134-151/82-89 - Tmax: 101.2 on admission - HR: 91-109x' - SatO2: >90% Intake and output - UO: 1,525 - 24h balance: +196 New lab results - WBC down from 9.35 to 6.87 - No bands - Hb down from 12.1 to 10.9 - DD up from 1.96 to 2.59 - pO2 up from 70 to 73 - ABG O2 sat stable 91.6 to 91.9 (FiO2 36-->34%) - Na stable at 130 - K up from 3.6 to 4.5 - Gap closed from 15.6 to 13.5 - Mg up from 2.2 to 2.4 - PO4 up from 1.8 to 3.5 - LDH down from 464 to 372 - CRP down from 42.4 to 35.8 - A1c 8.5% - Tylenol, salicylates and ketones level normal - Glucose trend 205-328 - Plan Plan:: Bilateral pneumonia due to COVID-19 virus Acute hypoxemic respiratory failure due to COVID-19 Respiratory alkalosis Mild ARDS - Continue Remdesivir day 2 - Continue dexamethasone day 11/19 - Actemra dose #2 today - 2u convalescent plasma today - F/U sputum and admission cultures - ABGs in AM - Continue O2 supplementation, goal O2 sat >92% - Albuterol inhaler q4h PRN - Procalcitonin q48h - COVID labs AM - Keep I/Os balance negative or neutral High anion gap metabolic acidosis Metabolic alkalosis Hyponatremia - Tylenol, salicylates and ketones level ordered - Start NS Normocytic normochromic anemia - Anemia work-up ordered and pending - Goal Hb > 7 Diabetes mellitus, [id number]-7.5% - Scheduled Accuchecks - Increase Levemir to 15u at bedtime - Hypoglycemia protocol - Continue to hold metformin Hypertension - Continue home lisinopril - PRN hydralazine PROPHYLAXIS DVT-Lovenox GI- continue home omeprazole CODE STATUS: FULL CODE DISPOSITION: Patient will remain admitted on O2 supplementation and COVID treatment. LOS will be at least 5 days as per days required of Remdesivir.
[2020-06-14] MEDS: Enoxaparin 40 MG/0.4 ML Syringe SUBCUT SCH (11:13)
[2020-06-14] MEDS ORDERED: Sodium Chloride 0.9% 250 ML IV SCH (12:30)
[2020-06-14] MEDS ORDERED: Albuterol 6.7 GM Inhaler INH SCH (16:30)
[2020-06-14] MEDS: Sodium Chloride 0.9% 1,000 ML IV SCH (17:50)
[2020-06-14] MEDS: Albuterol 6.7 GM Inhaler INH SCH ×2 (20:00→20:42)
[2020-06-14] MEDS ORDERED: Insulin Glarg,Human.Rec.Analog 100 Unit/ML SUBCUT SCH (21:00)
[2020-06-14] MEDS ORDERED: Insulin Lispro 100 Units/ML 3 ML Vial SUBCUT ONE (21:04)
--- NOTE | 2020-06-14 21:23 | PCM.SN.2 ---
- Free Text/Narrative Note: Convalescent plasma availability Notified by Ziggy in lab that patient is blood type AB+ for which he can only receive AB positive plasma Our current providers are out of this blood type plasma Requests have been sent to other places Likely will be available by tomorrow evening
[2020-06-14] MEDS: REMDESIVIR (EUA) 100 MG in Sodium Chloride 0.9% 100 ML IV SCH (22:10)
[2020-06-15] MEDS: Albuterol 6.7 GM Inhaler INH SCH ×6 (00:43→21:43)
[2020-06-15] MEDS: LORazepam 1 MG Tab PO SCH ×2 (01:16→21:51)
[2020-06-15] MEDS: methylPREDNISolone Sodium Succinate 40 MG/1 ML SDV IVPUSH SCH ×3 (01:18→13:27)
[2020-06-15] MEDS: Dexamethasone 4 MG/ML SDV IVPUSH SCH (01:43)
[2020-06-15] MEDS: Sodium Chloride 0.9% 1,000 ML IV SCH (03:40)
[2020-06-15] MEDS: Insulin Lispro 100 Units/ML 3 ML Vial SUBCUT SCH ×6 (06:48→23:06)
[2020-06-15] MEDS: Enoxaparin 40 MG/0.4 ML Syringe SUBCUT SCH (09:09)
[2020-06-15] MEDS: Azithromycin 500 MG in Sodium Chloride 0.9% 250 ML IV SCH (09:09)
[2020-06-15] MEDS: cefTRIAXone 2 GM in Sodium Chloride 0.9% 100 ML IV SCH (09:09)
[2020-06-15] MEDS: Lisinopril 10 MG Tab PO SCH (09:23)
[2020-06-15] MEDS: Metoprolol Succinate 50 MG Tab.ER PO SCH (09:24)
--- NOTE | 2020-06-15 13:15 | PCM.PN ---
- General Info Date of Service: 06/15/20 Subjective Update: Karla is continuing to improve. He is down to 1 L/min of FiO2. Sputum is growing gram-positive cocci in pairs. He was able to take a shower without much difficulty off oxygen. Functional Status: Reports: Pain Controlled - Review of Systems General: Reports: No Symptoms HEENT: Reports: No Symptoms Pulmonary: Reports: Cough Cardiovascular: Reports: No Symptoms Gastrointestinal: Reports: No Symptoms Musculoskeletal: Reports: No Symptoms Neurological: Reports: No Symptoms Psychiatric: Reports: No Symptoms - Patient Data Vitals - Most Recent: Last Vital Signs Temp 98.1 F 06/15/20 03:37 Pulse 108 H 06/15/20 09:24 Resp 24 H 06/15/20 09:17 BP 151/105 H 06/15/20 09:24 Pulse Ox 93 L 06/15/20 12:31 Weight - Most Recent: 87.589 kg I&O - Last 24 Hours: Intake & Output 06/14/20 06/15/20 06/15/20 22:59 06:59 14:59 Intake Total 2980 2520 600 Output Total 2200 1850 Balance 780 670 600 Lab Results Last 24 Hours: Laboratory Results - last 24 hr 06/14/20 06/14/20 06/15/20 Range/Units 17:25 19:53 05:14 WBC 6.99 (4.23-9.07) K/mm3 RBC 3.77 L (4.63-6.08) M/mm3 Hgb 10.8 L (13.7-17.5) gm/dl Hct 33.4 L (40.1-51.0) % MCV 88.6 (79.0-92.2) fl MCH 28.6 (25.7-32.2) pg MCHC 32.3 (32.2-35.5) g/dl RDW Std Deviation 40.9 (35.1-43.9) fL Plt Count 462 H D (163-337) K/mm3 MPV 9.4 (9.4-12.3) fl Neutrophils % (Manual) 91 H (40-60) % Band Neutrophils % 0 (0-10) % Lymphocytes % (Manual) 6 L (20-40) % Atypical Lymphs % 0 % Monocytes % (Manual) 3 (2-10) % Eosinophils % (Manual) 0 L (0.8-7.0) % Basophils % (Manual) 0 L (0.2-1.2) Platelet Estimate Adequate Anisocytosis 1+ slight RBC Morph Comment Abnormal PT (9.7-11.7) SECONDS INR D-Dimer, Quantitative (0.19-0.50) mg/L Puncture Site ABG pH (7.35-7.45) ABG pCO2 (35.0-45.0) mmHg ABG pO2 (80.0-100.0) mmHg ABG HCO3 (22.0-26.0) meq/L ABG O2 Saturation (96.0-97.0) % ABG Base Excess (-2-2.0) [place] Test A-a Gradient mmHg O2 Delivery Device Oxygen Flow Rate FiO2 (21.00-100.00) % Sodium (136-145) mEq/L Potassium (3.5-5.1) mEq/L Chloride (98-107) mEq/L Carbon Dioxide (21-32) mEq/L Anion Gap (5-15) BUN (7-18) mg/dL Creatinine (0.7-1.3) mg/dL Est Cr Clr Drug Dosing mL/min Estimated GFR (MDRD) (>60) mL/min BUN/Creatinine Ratio (14-18) Glucose 412 H (74-106) mg/dL POC Glucose 384 H (70-105) mg/dL Calcium (8.5-10.1) mg/dL Phosphorus (2.6-4.7) mg/dL Magnesium (1.8-2.4) mg/dl Ferritin (26-388) ng/ml Lactate Dehydrogenase (85-227) U/L Creatine Kinase (39-308) U/L Troponin I (0.00-0.056) ng/mL C-Reactive Protein (<1.0) mg/dL NT-Pro-B Natriuret Pep (0-125) pg/mL 06/15/20 06/15/20 06/15/20 Range/Units 05:14 05:14 05:14 WBC (4.23-9.07) K/mm3 RBC (4.63-6.08) M/mm3 Hgb (13.7-17.5) gm/dl Hct (40.1-51.0) % MCV (79.0-92.2) fl MCH (25.7-32.2) pg MCHC (32.2-35.5) g/dl RDW Std Deviation (35.1-43.9) fL Plt Count (163-337) K/mm3 MPV (9.4-12.3) fl Neutrophils % (Manual) (40-60) % Band Neutrophils % (0-10) % Lymphocytes % (Manual) (20-40) % Atypical Lymphs % % Monocytes % (Manual) (2-10) % Eosinophils % (Manual) (0.8-7.0) % Basophils % (Manual) (0.2-1.2) Platelet Estimate Anisocytosis RBC Morph Comment PT 11.9 H (9.7-11.7) SECONDS INR 1.11 D-Dimer, Quantitative 1.98 H (0.19-0.50) mg/L Puncture Site ABG pH (7.35-7.45) ABG pCO2 (35.0-45.0) mmHg ABG pO2 (80.0-100.0) mmHg ABG HCO3 (22.0-26.0) meq/L ABG O2 Saturation (96.0-97.0) % ABG Base Excess (-2-2.0) [place] Test A-a Gradient mmHg O2 Delivery Device Oxygen Flow Rate FiO2 (21.00-100.00) % Sodium 131 L (136-145) mEq/L Potassium 4.4 (3.5-5.1) mEq/L Chloride 97 L (98-107) mEq/L Carbon Dioxide 25 (21-32) mEq/L Anion Gap 13.4 (5-15) BUN 18 (7-18) mg/dL Creatinine 1.0 (0.7-1.3) mg/dL Est Cr Clr Drug Dosing 95.17 mL/min Estimated GFR (MDRD) > 60 (>60) mL/min BUN/Creatinine Ratio 18.0 (14-18) Glucose 412 H (74-106) mg/dL POC Glucose (70-105) mg/dL Calcium 8.9 (8.5-10.1) mg/dL Phosphorus 2.6 (2.6-4.7) mg/dL Magnesium 2.5 H (1.8-2.4) mg/dl Ferritin (26-388) ng/ml Lactate Dehydrogenase 392 H (85-227) U/L Creatine Kinase 287 (39-308) U/L Troponin I < 0.017 (0.00-0.056) ng/mL C-Reactive Protein 21.3 H* (<1.0) mg/dL NT-Pro-B Natriuret Pep 627 H (0-125) pg/mL 06/15/20 06/15/20 06/15/20 Range/Units 05:14 05:40 06:48 WBC (4.23-9.07) K/mm3 RBC (4.63-6.08) M/mm3 Hgb (13.7-17.5) gm/dl Hct (40.1-51.0) % MCV (79.0-92.2) fl MCH (25.7-32.2) pg MCHC (32.2-35.5) g/dl RDW Std Deviation (35.1-43.9) fL Plt Count (163-337) K/mm3 MPV (9.4-12.3) fl Neutrophils % (Manual) (40-60) % Band Neutrophils % (0-10) % Lymphocytes % (Manual) (20-40) % Atypical Lymphs % % Monocytes % (Manual) (2-10) % Eosinophils % (Manual) (0.8-7.0) % Basophils % (Manual) (0.2-1.2) Platelet Estimate Anisocytosis RBC Morph Comment PT (9.7-11.7) SECONDS INR D-Dimer, Quantitative (0.19-0.50) mg/L Puncture Site Rt radial ABG pH 7.43 (7.35-7.45) ABG pCO2 37.6 (35.0-45.0) mmHg ABG pO2 75.0 L (80.0-100.0) mmHg ABG HCO3 24.4 (22.0-26.0) meq/L ABG O2 Saturation 93.1 L (96.0-97.0) % ABG Base Excess 0.7 (-2-2.0) [place] Test Positive A-a Gradient 49 mmHg O2 Delivery Device Nasal cannula Oxygen Flow Rate 1.0 FiO2 24.00 (21.00-100.00) % Sodium (136-145) mEq/L Potassium (3.5-5.1) mEq/L Chloride (98-107) mEq/L Carbon Dioxide (21-32) mEq/L Anion Gap (5-15) BUN (7-18) mg/dL Creatinine (0.7-1.3) mg/dL Est Cr Clr Drug Dosing mL/min Estimated GFR (MDRD) (>60) mL/min BUN/Creatinine Ratio (14-18) Glucose (74-106) mg/dL POC Glucose 398 H (70-105) mg/dL Calcium (8.5-10.1) mg/dL Phosphorus (2.6-4.7) mg/dL Magnesium (1.8-2.4) mg/dl Ferritin 584 H (26-388) ng/ml Lactate Dehydrogenase (85-227) U/L Creatine Kinase (39-308) U/L Troponin I (0.00-0.056) ng/mL C-Reactive Protein (<1.0) mg/dL NT-Pro-B Natriuret Pep (0-125) pg/mL 06/15/20 06/15/20 Range/Units 10:14 11:25 WBC (4.23-9.07) K/mm3 RBC (4.63-6.08) M/mm3 Hgb (13.7-17.5) gm/dl Hct (40.1-51.0) % MCV (79.0-92.2) fl MCH (25.7-32.2) pg MCHC (32.2-35.5) g/dl RDW Std Deviation (35.1-43.9) fL Plt Count (163-337) K/mm3 MPV (9.4-12.3) fl Neutrophils % (Manual) (40-60) % Band Neutrophils % (0-10) % Lymphocytes % (Manual) (20-40) % Atypical Lymphs % % Monocytes % (Manual) (2-10) % Eosinophils % (Manual) (0.8-7.0) % Basophils % (Manual) (0.2-1.2) Platelet Estimate Anisocytosis RBC Morph Comment PT (9.7-11.7) SECONDS INR D-Dimer, Quantitative 1.77 H (0.19-0.50) mg/L Puncture Site ABG pH (7.35-7.45) ABG pCO2 (35.0-45.0) mmHg ABG pO2 (80.0-100.0) mmHg ABG HCO3 (22.0-26.0) meq/L ABG O2 Saturation (96.0-97.0) % ABG Base Excess (-2-2.0) [place] Test A-a Gradient mmHg O2 Delivery Device Oxygen Flow Rate FiO2 (21.00-100.00) % Sodium (136-145) mEq/L Potassium (3.5-5.1) mEq/L Chloride (98-107) mEq/L Carbon Dioxide (21-32) mEq/L Anion Gap (5-15) BUN (7-18) mg/dL Creatinine (0.7-1.3) mg/dL Est Cr Clr Drug Dosing mL/min Estimated GFR (MDRD) (>60) mL/min BUN/Creatinine Ratio (14-18) Glucose 418 H (74-106) mg/dL POC Glucose (70-105) mg/dL Calcium (8.5-10.1) mg/dL Phosphorus (2.6-4.7) mg/dL Magnesium (1.8-2.4) mg/dl Ferritin (26-388) ng/ml Lactate Dehydrogenase (85-227) U/L Creatine Kinase (39-308) U/L Troponin I (0.00-0.056) ng/mL C-Reactive Protein (<1.0) mg/dL NT-Pro-B Natriuret Pep (0-125) pg/mL Clark Results Last 24 Hours: Microbiology 06/14/20 06:20 Gram Stain - Final Sputum - Induced Sputum Culture - Preliminary 06/13/20 17:10 Aerobic Blood Culture - Preliminary Blood - Venous NO GROWTH AFTER 1 DAY Anaerobic Blood Culture - Preliminary NO GROWTH AFTER 1 DAY 06/13/20 17:30 Aerobic Blood Culture - Preliminary Blood - Venous - Lab Draw NO GROWTH AFTER 1 DAY Anaerobic Blood Culture - Preliminary NO GROWTH AFTER 1 DAY Med Orders - Current: Current Medications Acetaminophen (Tylenol) 650 mg PO Q4H PRN PRN Reason: Pain (Mild 1-3)/fever Albuterol (Proventil Hfa) 0 gm INH Q4H [facility] Last Admin: 06/15/20 12:31 Dose: 2 puff Documented by: Enoxaparin Sodium (Lovenox) 40 mg SUBCUT DAILY [facility] Last Admin: 06/15/20 09:09 Dose: 40 mg Documented by: REMDESIVIR (EUA) 100 mg/ (Sodium Chloride) 100 mls @ 100 mls/hr IV Q24H [facility] Stop: 06/17/20 22:59 Last Admin: 06/14/20 22:10 Dose: 100 mls/hr Documented by: Ceftriaxone Sodium 2 gm/ (Sodium Chloride) 100 mls @ 200 mls/hr IV Q24H [facility] Stop: 06/20/20 08:01 Last Admin: 06/15/20 09:09 Dose: 200 mls/hr Documented by: Azithromycin 500 mg/ Sodium (Chloride) 250 mls @ 250 mls/hr IV Q24H [facility] Stop: 06/18/20 08:01 Last Admin: 06/15/20 09:09 Dose: 250 mls/hr Documented by: Insulin Glargine (Lantus) 15 unit SUBCUT BEDTIME [facility] Last Admin: 06/15/20 01:16 Dose: 15 units Documented by: Insulin Human Lispro (Humalog) 10 unit SUBCUT TIDAC [facility] Last Admin: 06/15/20 11:36 Dose: 10 units Documented by: Insulin Human Lispro (Humalog) 0 unit SUBCUT QIDACANDBED [facility]; Protocol Lisinopril (Prinivil) 10 mg PO DAILY [facility] Last Admin: 06/15/20 09:23 Dose: 10 mg Documented by: Lorazepam (Ativan) 2 mg PO BEDTIME [facility] Last Admin: 06/15/20 01:16 Dose: 2 mg Documented by: Methylprednisolone Sodium Succinate (Solu-Medrol) 40 mg IVPUSH Q8H [facility] Last Admin: 06/15/20 06:47 Dose: 40 mg Documented by: Metoprolol Succinate (Toprol Xl) 100 mg PO DAILY [facility] Last Admin: 06/15/20 09:24 Dose: 100 mg Documented by: Ondansetron HCl (Zofran Odt) 4 mg PO Q6H PRN PRN Reason: nausea, able to take PO Ondansetron HCl (Zofran) 4 mg IV Q6H PRN PRN Reason: Nausea/Vomiting Sodium Chloride (Saline Flush) 10 ml FLUSH ASDIRECTED PRN PRN Reason: Keep Vein Open Last Admin: 06/13/20 18:58 Dose: 10 ml Documented by: Discontinued Medications Albuterol (Proventil Neb Soln) Confirm Administered Dose 2.5 mg .ROUTE .STK-MED ONE Stop: 06/14/20 06:06 Last Admin: 06/14/20 06:21 Dose: 2.5 mg Documented by: Albuterol (Proventil Hfa) 0 gm INH Q4H [facility] Last Admin: 06/14/20 16:37 Dose: 2 puff Documented by: Dexamethasone (Dexamethasone) 6 mg IVPUSH Q24H [facility] Stop: 06/22/20 20:01 Last Admin: 06/15/20 01:43 Dose: Not Given Documented by: Sodium Chloride (Normal Saline) 1,000 mls @ 100 mls/hr IV ASDIRECTED [facility] Last Infusion: 06/13/20 20:10 Dose: 70 mls/hr Documented by: Sodium Chloride (Normal Saline) 100 mls @ 70 mls/hr IV ASDIRECTED [facility] REMDESIVIR (EUA) 200 mg/ (Sodium Chloride) 250 mls @ 250 mls/hr IV ONETIME STA Stop: 06/13/20 19:38 Last Admin: 06/13/20 22:16 Dose: 250 mls/hr Documented by: Tocilizumab 800 mg/ Sodium (Chloride) 100 mls @ 100 mls/hr IV Q12H [facility] Stop: 06/14/20 12:29 Last Admin: 06/14/20 11:14 Dose: 100 mls/hr Documented by: Sodium Chloride (Normal Saline) 1,000 mls @ 100 mls/hr IV ASDIRECTED [facility] Last Admin: 06/15/20 03:40 Dose: 100 mls/hr Documented by: Sodium Chloride (Normal Saline) 250 mls @ 20 mls/hr IV ASDIRECTED [facility] Insulin Glargine (Lantus) 5 unit SUBCUT BEDTIME [facility] Last Admin: 06/13/20 22:19 Dose: 5 units Documented by: Insulin Human Lispro (Humalog) 10 unit SUBCUT ONETIME ONE Stop: 06/14/20 21:05 Last Admin: 06/14/20 22:00 Dose: 10 units Documented by: Iopamidol (Isovue-370 (76%)) 100 ml IVPUSH ONETIME ONE Stop: 06/13/20 18:05 Last Admin: 06/13/20 18:58 Dose: 100 ml Documented by: Sodium Chloride (Sodium Chloride 3%) 4 ml NEB ONETIME ONE Stop: 06/14/20 06:01 Last Admin: 06/14/20 06:11 Dose: 4 ml Documented by: Tocilizumab (Actemra) 800 mg IV Q12HR [facility] Stop: 06/14/20 09:01 - Exam Quality Assessment: Supplemental Oxygen General: Alert, Oriented HEENT: Pupils Equal, Mucous Membr. Moist/[place] Neck: Supple Lungs: Normal Respiratory Effort, Wheezing Cardiovascular: Regular Rate, Regular Rhythm GI/Abdominal Exam: Normal Bowel Sounds, Soft, Non-Tender, No Distention Extremities: Normal Inspection, Normal Range of Motion, Non-Tender, No Pedal Edema, Normal Capillary Refill Skin: Warm, Dry, Intact Neurological: No New Focal Deficit Psy/Mental Status: Alert, Normal Affect, Normal Mood Sepsis Event Note - Evaluation Sepsis Screening Result: Sepsis Risk - Focused Exam Vital Signs: Vital Signs Temp Pulse Resp BP Pulse Ox Pulse Ox Pulse Ox 06/15/20 12:31 93 L 06/15/20 09:24 108 H 151/105 H 06/15/20 09:23 151/105 H 06/15/20 09:17 108 H 24 H 133/111 H 93 L 06/15/20 08:23 93 L 06/15/20 05:38 95 06/15/20 03:37 98.1 F 85 14 122/79 94 L - Problem List & Annotations (1) Acute hypoxemic respiratory failure due to COVID-19 SNOMED Code(s): 114465545 Code(s): U07.1 - COVID-19; J96.01 - ACUTE RESPIRATORY FAILURE WITH HYPOXIA Status: Acute Current Visit: Yes (2) Bilateral pneumonia SNOMED Code(s): 657439601 Code(s): J18.9 - PNEUMONIA, UNSPECIFIED ORGANISM Status: Acute Current Visit: Yes (3) Diabetes mellitus SNOMED Code(s): 12667132 Code(s): E11.9 - TYPE 2 DIABETES MELLITUS WITHOUT COMPLICATIONS Status: Acute Current Visit: Yes (4) Hypertension SNOMED Code(s): 52722663 Code(s): I10 - ESSENTIAL (PRIMARY) HYPERTENSION Status: Acute Current Visit: Yes (5) Hyponatremia SNOMED Code(s): 71266173 Code(s): E87.1 - HYPO-OSMOLALITY AND HYPONATREMIA Status: Acute Current Visit: Yes - Problem List Review Problem List Initiated/Reviewed/Updated: Yes - My Orders Last 24 Hours: My Active Orders 06/15/20 08:00 Azithromycin [Zithromax] 500 mg Sodium Chloride 0.9% [Normal Saline] 250 ml IV Q24H cefTRIAXone [Rocephin] 2 gm Sodium Chloride 0.9% [Normal Saline] 100 ml IV Q24H 06/15/20 11:00 Insulin Lispro [HumaLOG] See Protocol SUBCUT QIDACANDBED 06/16/20 05:11 C-REACTIVE PROTEIN [CHEM] AM CBC WITH AUTO DIFF [HEME] AM CMP [COMPREHENSIVE METABOLIC PN,CMP] [CHEM] AM D Dimer [D-DIMER QUANTITATIVE] [COAG] AM 06/17/20 05:11 C-REACTIVE PROTEIN [CHEM] AM CBC WITH AUTO DIFF [HEME] AM CMP [COMPREHENSIVE METABOLIC PN,CMP] [CHEM] AM D Dimer [D-DIMER QUANTITATIVE] [COAG] AM 06/18/20 05:11 C-REACTIVE PROTEIN [CHEM] AM CBC WITH AUTO DIFF [HEME] AM CMP [COMPREHENSIVE METABOLIC PN,CMP] [CHEM] AM D Dimer [D-DIMER QUANTITATIVE] [COAG] AM 06/19/20 05:11 C-REACTIVE PROTEIN [CHEM] AM CBC WITH AUTO DIFF [HEME] AM CMP [COMPREHENSIVE METABOLIC PN,CMP] [CHEM] AM D Dimer [D-DIMER QUANTITATIVE] [COAG] AM - Assessment Assessment:: ASSESSMENT - Symptoms started 2 weeks ago, shortness of breath - Productive cough of thick clear sputum - Decreased appetite, unable to sleep, - Clinic appointment on Tuesday - CXR + COVID - Diagnosed with pneumonia and discharged on azithromycin and q4h inhaler as needed - Completed azithromycin today and has been using inhaler q4h - COVID reported positive yesterday--> given home pulse oximeter - Called today with pulse oximetry at 80% on RA and referred to ED - Upon admission to ED pulse ox on RA 77% - BP 143/89 (107); HR 130x'; RR 25x'; T 101.2 - Placed on 4L NC - Labs on admission: - CBC: WBC 9.35 (N-89, L-5.8%), Hb 12.1, Hct 36.6, plt 335 - Chemistry: Na 130, K 3.6, Cl 91, CO2 27, BUN 7, Cr 1.1, GFR >60, Glucose 311, Ca 9.1, Mg 2.2, PO4 1.8, AG 15.7 - LFTs: T bili 0.6, AST 32, ALT 36, AP 69, T.prot 7.6, Albumin 2.5 - ABGs: 7.51/34.3/70/27/91.6 @ 36% - PaO2/FiO2: 254, mild ARDS - CT chest with bilateral patchy infiltrates throughout, no PE - On physical exam patient in obvious respiratory distress - Minimal air entry heard only as wheezing PLAN - Start Remdesivir loading dose today, maintenance tomorrow to complete 4 days total - Start daily dexamethasone to complete 10 days - Start Actemra x2 doses every 12 hours - Convalescent plasma in AM - Induced sputum in AM - ABGs in AM - Continue O2 supplementation, goal O2 sat >92% - Albuterol inhaler q4h PRN - Procalcitonin q48h - COVID labs AM - F/U cultures from ED - Keep I/Os balance negative or neutral - Start NS - Anemia work-up ordered - Goal Hb > 7 - Scheduled Accuchecks - Levemir 5u at bedtime for now - Hypoglycemia protocol - New HbA1c - Hold metformin - Continue home lisinopril - PRN hydralazine Patient will be admitted on O2 supplementation and COVID treatment. LOS will be at least 5 days as per days required of Remdesivir. 06/14/20 Inflammatory markers trending down VS stable Oxygenation stable without any increased requirements Electrolytes improved A1c likely higher as patient is anemic Afebrile since admission VS trend - BP: 134-151/82-89 - Tmax: 101.2 on admission - HR: 91-109x' - SatO2: >90% Intake and output - UO: 1,525 - 24h balance: +196 New lab results - WBC down from 9.35 to 6.87 - No bands - Hb down from 12.1 to 10.9 - DD up from 1.96 to 2.59 - pO2 up from 70 to 73 - ABG O2 sat stable 91.6 to 91.9 (FiO2 36-->34%) - Na stable at 130 - K up from 3.6 to 4.5 - Gap closed from 15.6 to 13.5 - Mg up from 2.2 to 2.4 - PO4 up from 1.8 to 3.5 - LDH down from 464 to 372 - CRP down from 42.4 to 35.8 - A1c 8.5% - Tylenol, salicylates and ketones level normal - Glucose trend 205-328 06/15/2020 Generally patient is feeling better. Oxygen requirements are significantly lower Only on 1 L nasal cannula. unable to give convalescent plasma secondary to AB blood type. Blood sugars continue to trend up likely secondary to steroids Blood sugars are persistently in the upper 300s to 400s. Blood pressures continue to be elevated with most recent being 151/100 Continues to be afebrile Sputum Gram stain demonstrating gram-positive cocci in pairs D-dimer is down to 1.98, C-reactive protein is down to 21.3, BNP is up to 627 - Plan Plan:: Bilateral pneumonia due to COVID-19 virus Acute hypoxemic respiratory failure due to COVID-19 Respiratory alkalosis Mild ARDS - Continue Remdesivir day 3/5 -On methylprednisolone 40 mg every 8 hours -we will switch to prednisone 40 mg daily secondary to severe hyperglycemia - Actemra completed -Give convalescent plasma when available - F/U sputum and admission cultures -Start Rocephin and azithromycin - Continue O2 supplementation, goal O2 sat >92% - Albuterol inhaler q4h PRN - Procalcitonin q48h -CBC, CMP, mag, d-dimer, CRP in the morning - Keep I/Os balance negative or neutral High anion gap metabolic acidosis-resolved Metabolic alkalosis-resolved Hyponatremia-stable - Tylenol, salicylates and ketones level ordered -Stop NS Normocytic normochromic anemia - Anemia work-up ordered and pending - Goal Hb > 7 Diabetes mellitus, [id number]% - Scheduled Accuchecks - Increase Levemir to 20u at bedtime -Humalog 12 units with each meal -Add sliding scale insulin - Hypoglycemia protocol - Continue to hold metformin Hypertension - Continue home lisinopril -At home metoprolol succinate 100 mg daily -Give metoprolol tartrate 50 mg x 1 - PRN hydralazine PROPHYLAXIS DVT-Lovenox GI- continue home omeprazole CODE STATUS: FULL CODE DISPOSITION: Patient will remain admitted on O2 supplementation and COVID treatment. LOS will be at least 5 days as per days required of Remdesivir.
[2020-06-15] MEDS ORDERED: Metoprolol Tartrate 50 MG Tab PO ONE (13:24)
[2020-06-15] MEDS ORDERED: Insulin Lispro 100 Units/ML 3 ML Vial SUBCUT ONE (15:22)
[2020-06-15] MEDS ORDERED: Sodium Chloride 0.9% 250 ML IV SCH (17:15)
[2020-06-15] MEDS ORDERED: Sodium Chloride 0.9% 250 ML ONE (17:23)
[2020-06-15] MEDS: Insulin Glarg,Human.Rec.Analog 100 Unit/ML SUBCUT SCH (21:51)
[2020-06-15] MEDS: REMDESIVIR (EUA) 100 MG in Sodium Chloride 0.9% 100 ML IV SCH (21:54)
[2020-06-16] MEDS: Albuterol 6.7 GM Inhaler INH SCH ×6 (01:25→20:47)
[2020-06-16] MEDS: Insulin Lispro 100 Units/ML 3 ML Vial SUBCUT SCH ×7 (06:30→22:08)
[2020-06-16] MEDS ORDERED: Non-Formulary Medication 1 Each (Metoprolol Succinate 100 MG) PO SCH (09:00)
[2020-06-16] MEDS: Lisinopril 10 MG Tab PO SCH (09:37)
[2020-06-16] MEDS: predniSONE 20 MG Tab PO SCH (09:37)
[2020-06-16] MEDS: cefTRIAXone 2 GM in Sodium Chloride 0.9% 100 ML IV SCH (09:40)
[2020-06-16] MEDS: Azithromycin 500 MG in Sodium Chloride 0.9% 250 ML IV SCH (09:40)
[2020-06-16] MEDS: Metoprolol Succinate 50 MG Tab.ER PO SCH (09:40)
[2020-06-16] MEDS: Enoxaparin 40 MG/0.4 ML Syringe SUBCUT SCH (09:44)
--- NOTE | 2020-06-16 12:42 | PCM.PN ---
- General Info Date of Service: 06/16/20 Admission Dx/Problem (Free Text): COVID 19 Subjective Update: Karla continues to improve. He is off of his oxygen. Appetite is good although he has not regained his sense of smell. Bowel movement yesterday. Functional Status: Reports: Pain Controlled - Review of Systems General: Reports: No Symptoms HEENT: Reports: No Symptoms Pulmonary: Reports: No Symptoms Cardiovascular: Reports: No Symptoms Gastrointestinal: Reports: No Symptoms Musculoskeletal: Reports: No Symptoms - Patient Data Vitals - Most Recent: Last Vital Signs Temp 97.9 F 06/16/20 05:30 Pulse 98 06/16/20 09:40 Resp 15 06/16/20 05:30 BP 145/81 H 06/16/20 09:40 Pulse Ox 90 L 06/16/20 08:25 Weight - Most Recent: 89.766 kg I&O - Last 24 Hours: Intake & Output 06/15/20 06/16/20 06/16/20 22:59 06:59 14:59 Intake Total 3113 1000 Output Total 1300 1750 Balance 1813 -750 Lab Results Last 24 Hours: Laboratory Results - last 24 hr 06/14/20 06/15/20 06/15/20 Range/Units 03:32 05:14 13:11 WBC (4.23-9.07) K/mm3 RBC (4.63-6.08) M/mm3 Hgb (13.7-17.5) gm/dl Hct (40.1-51.0) % MCV (79.0-92.2) fl MCH (25.7-32.2) pg MCHC (32.2-35.5) g/dl RDW Std Deviation (35.1-43.9) fL Plt Count (163-337) K/mm3 MPV (9.4-12.3) fl Neut % (Auto) (34.0-67.9) % Lymph % (Auto) (21.8-53.1) % Weber % (Auto) (5.3-12.2) % Eos % (Auto) (0.8-7.0) Baso % (Auto) (0.1-1.2) % Neut # (Auto) (1.78-5.38) K/mm3 Lymph # (Auto) (1.32-3.57) K/mm3 Weber # (Auto) (0.30-0.82) K/mm3 Eos # (Auto) (0.04-0.54) K/mm3 Baso # (Auto) (0.01-0.08) K/mm3 Manual Slide Review D-Dimer, Quantitative (0.19-0.50) mg/L Sodium (136-145) mEq/L Potassium (3.5-5.1) mEq/L Chloride (98-107) mEq/L Carbon Dioxide (21-32) mEq/L Anion Gap (5-15) BUN (7-18) mg/dL Creatinine (0.7-1.3) mg/dL Est Cr Clr Drug Dosing mL/min Estimated GFR (MDRD) (>60) mL/min BUN/Creatinine Ratio (14-18) Glucose (74-106) mg/dL POC Glucose 354 H (70-105) mg/dL Calcium (8.5-10.1) mg/dL Total Bilirubin (0.2-1.0) mg/dL AST (15-37) U/L ALT (16-63) U/L Alkaline Phosphatase (46-116) U/L C-Reactive Protein (<1.0) mg/dL Total Protein (6.4-8.2) g/dl Albumin (3.4-5.0) g/dl Globulin gm/dL Albumin/Globulin Ratio (1-2) Procalcitonin 0.27 H (<0.10) ng/mL Blood Type AB POSITIVE 06/15/20 06/15/20 06/15/20 Range/Units 15:16 17:32 22:04 WBC (4.23-9.07) K/mm3 RBC (4.63-6.08) M/mm3 Hgb (13.7-17.5) gm/dl Hct (40.1-51.0) % MCV (79.0-92.2) fl MCH (25.7-32.2) pg MCHC (32.2-35.5) g/dl RDW Std Deviation (35.1-43.9) fL Plt Count (163-337) K/mm3 MPV (9.4-12.3) fl Neut % (Auto) (34.0-67.9) % Lymph % (Auto) (21.8-53.1) % Weber % (Auto) (5.3-12.2) % Eos % (Auto) (0.8-7.0) Baso % (Auto) (0.1-1.2) % Neut # (Auto) (1.78-5.38) K/mm3 Lymph # (Auto) (1.32-3.57) K/mm3 Weber # (Auto) (0.30-0.82) K/mm3 Eos # (Auto) (0.04-0.54) K/mm3 Baso # (Auto) (0.01-0.08) K/mm3 Manual Slide Review D-Dimer, Quantitative (0.19-0.50) mg/L Sodium (136-145) mEq/L Potassium (3.5-5.1) mEq/L Chloride (98-107) mEq/L Carbon Dioxide (21-32) mEq/L Anion Gap (5-15) BUN (7-18) mg/dL Creatinine (0.7-1.3) mg/dL Est Cr Clr Drug Dosing mL/min Estimated GFR (MDRD) (>60) mL/min BUN/Creatinine Ratio (14-18) Glucose 397 H (74-106) mg/dL POC Glucose 310 H 273 H (70-105) mg/dL Calcium (8.5-10.1) mg/dL Total Bilirubin (0.2-1.0) mg/dL AST (15-37) U/L ALT (16-63) U/L Alkaline Phosphatase (46-116) U/L C-Reactive Protein (<1.0) mg/dL Total Protein (6.4-8.2) g/dl Albumin (3.4-5.0) g/dl Globulin gm/dL Albumin/Globulin Ratio (1-2) Procalcitonin (<0.10) ng/mL Blood Type 06/16/20 06/16/20 06/16/20 Range/Units 06:02 06:05 06:05 WBC 7.57 (4.23-9.07) K/mm3 RBC 3.51 L (4.63-6.08) M/mm3 Hgb 10.2 L (13.7-17.5) gm/dl Hct 31.4 L (40.1-51.0) % MCV 89.5 (79.0-92.2) fl MCH 29.1 (25.7-32.2) pg MCHC 32.5 (32.2-35.5) g/dl RDW Std Deviation 42.4 (35.1-43.9) fL Plt Count 468 H (163-337) K/mm3 MPV 9.2 L (9.4-12.3) fl Neut % (Auto) 66.5 (34.0-67.9) % Lymph % (Auto) 21.4 L (21.8-53.1) % Weber % (Auto) 11.2 (5.3-12.2) % Eos % (Auto) 0.1 L (0.8-7.0) Baso % (Auto) 0.3 (0.1-1.2) % Neut # (Auto) 5.03 (1.78-5.38) K/mm3 Lymph # (Auto) 1.62 (1.32-3.57) K/mm3 Weber # (Auto) 0.85 H (0.30-0.82) K/mm3 Eos # (Auto) 0.01 L (0.04-0.54) K/mm3 Baso # (Auto) 0.02 (0.01-0.08) K/mm3 Manual Slide Review Normal smear D-Dimer, Quantitative (0.19-0.50) mg/L Sodium 136 (136-145) mEq/L Potassium 3.9 (3.5-5.1) mEq/L Chloride 103 (98-107) mEq/L Carbon Dioxide 27 (21-32) mEq/L Anion Gap 9.9 (5-15) BUN 17 (7-18) mg/dL Creatinine 1.0 (0.7-1.3) mg/dL Est Cr Clr Drug Dosing 95.17 mL/min Estimated GFR (MDRD) > 60 (>60) mL/min BUN/Creatinine Ratio 17.0 (14-18) Glucose 165 H (74-106) mg/dL POC Glucose 149 H (70-105) mg/dL Calcium 9.0 (8.5-10.1) mg/dL Total Bilirubin 0.2 (0.2-1.0) mg/dL AST 37 (15-37) U/L ALT 54 (16-63) U/L Alkaline Phosphatase 59 (46-116) U/L C-Reactive Protein 8.4 H* (<1.0) mg/dL Total Protein 6.4 (6.4-8.2) g/dl Albumin 2.3 L (3.4-5.0) g/dl Globulin 4.1 gm/dL Albumin/Globulin Ratio 0.6 L (1-2) Procalcitonin (<0.10) ng/mL Blood Type 06/16/20 06/16/20 Range/Units 06:05 11:49 WBC (4.23-9.07) K/mm3 RBC (4.63-6.08) M/mm3 Hgb (13.7-17.5) gm/dl Hct (40.1-51.0) % MCV (79.0-92.2) fl MCH (25.7-32.2) pg MCHC (32.2-35.5) g/dl RDW Std Deviation (35.1-43.9) fL Plt Count (163-337) K/mm3 MPV (9.4-12.3) fl Neut % (Auto) (34.0-67.9) % Lymph % (Auto) (21.8-53.1) % Weber % (Auto) (5.3-12.2) % Eos % (Auto) (0.8-7.0) Baso % (Auto) (0.1-1.2) % Neut # (Auto) (1.78-5.38) K/mm3 Lymph # (Auto) (1.32-3.57) K/mm3 Weber # (Auto) (0.30-0.82) K/mm3 Eos # (Auto) (0.04-0.54) K/mm3 Baso # (Auto) (0.01-0.08) K/mm3 Manual Slide Review D-Dimer, Quantitative 1.58 H (0.19-0.50) mg/L Sodium (136-145) mEq/L Potassium (3.5-5.1) mEq/L Chloride (98-107) mEq/L Carbon Dioxide (21-32) mEq/L Anion Gap (5-15) BUN (7-18) mg/dL Creatinine (0.7-1.3) mg/dL Est Cr Clr Drug Dosing mL/min Estimated GFR (MDRD) (>60) mL/min BUN/Creatinine Ratio (14-18) Glucose (74-106) mg/dL POC Glucose 257 H (70-105) mg/dL Calcium (8.5-10.1) mg/dL Total Bilirubin (0.2-1.0) mg/dL AST (15-37) U/L ALT (16-63) U/L Alkaline Phosphatase (46-116) U/L C-Reactive Protein (<1.0) mg/dL Total Protein (6.4-8.2) g/dl Albumin (3.4-5.0) g/dl Globulin gm/dL Albumin/Globulin Ratio (1-2) Procalcitonin (<0.10) ng/mL Blood Type Clark Results Last 24 Hours: Microbiology 06/14/20 06:20 Gram Stain - Final Sputum - Induced Sputum Culture - Preliminary 06/13/20 17:10 Aerobic Blood Culture - Preliminary Blood - Venous NO GROWTH AFTER 2 DAYS Anaerobic Blood Culture - Preliminary NO GROWTH AFTER 2 DAYS 06/13/20 17:30 Aerobic Blood Culture - Preliminary Blood - Venous - Lab Draw NO GROWTH AFTER 2 DAYS Anaerobic Blood Culture - Preliminary NO GROWTH AFTER 2 DAYS Med Orders - Current: Current Medications Acetaminophen (Tylenol) 650 mg PO Q4H PRN PRN Reason: Pain (Mild 1-3)/fever Albuterol (Proventil Hfa) 0 gm INH Q4H [facility] Last Admin: 06/16/20 08:25 Dose: 2 puff Documented by: Enoxaparin Sodium (Lovenox) 40 mg SUBCUT DAILY [facility] Last Admin: 06/16/20 09:44 Dose: 40 mg Documented by: REMDESIVIR (EUA) 100 mg/ (Sodium Chloride) 100 mls @ 100 mls/hr IV Q24H [facility] Stop: 06/17/20 22:59 Last Admin: 06/15/20 21:54 Dose: 100 mls/hr Documented by: Ceftriaxone Sodium 2 gm/ (Sodium Chloride) 100 mls @ 200 mls/hr IV Q24H [facility] Stop: 06/20/20 08:01 Last Admin: 06/16/20 09:40 Dose: 200 mls/hr Documented by: Azithromycin 500 mg/ Sodium (Chloride) 250 mls @ 250 mls/hr IV Q24H [facility] Stop: 06/18/20 08:01 Last Admin: 06/16/20 09:40 Dose: 250 mls/hr Documented by: Insulin Glargine (Lantus) 20 unit SUBCUT BEDTIME [facility] Last Admin: 06/15/20 21:51 Dose: 20 units Documented by: Insulin Human Lispro (Humalog) 0 unit SUBCUT QIDACANDBED [facility]; Protocol Last Admin: 06/16/20 12:19 Dose: 6 units Documented by: Insulin Human Lispro (Humalog) 12 unit SUBCUT TIDAC [facility] Last Admin: 06/16/20 12:20 Dose: 12 unit Documented by: Lisinopril (Prinivil) 10 mg PO DAILY [facility] Last Admin: 06/16/20 09:37 Dose: 10 mg Documented by: Lorazepam (Ativan) 2 mg PO BEDTIME [facility] Last Admin: 06/15/20 21:51 Dose: 2 mg Documented by: Metoprolol Succinate (Toprol Xl) 100 mg PO DAILY [facility] Last Admin: 06/16/20 09:40 Dose: 100 mg Documented by: Ondansetron HCl (Zofran Odt) 4 mg PO Q6H PRN PRN Reason: nausea, able to take PO Ondansetron HCl (Zofran) 4 mg IV Q6H PRN PRN Reason: Nausea/Vomiting Prednisone (Prednisone) 40 mg PO WITHBREAKFAST [facility] Last Admin: 06/16/20 09:37 Dose: 40 mg Documented by: Sodium Chloride (Saline Flush) 10 ml FLUSH ASDIRECTED PRN PRN Reason: Keep Vein Open Last Admin: 06/13/20 18:58 Dose: 10 ml Documented by: Discontinued Medications Albuterol (Proventil Neb Soln) Confirm Administered Dose 2.5 mg .ROUTE .STK-MED ONE Stop: 06/14/20 06:06 Last Admin: 06/14/20 06:21 Dose: 2.5 mg Documented by: Albuterol (Proventil Hfa) 0 gm INH Q4H [facility] Last Admin: 06/14/20 16:37 Dose: 2 puff Documented by: Dexamethasone (Dexamethasone) 6 mg IVPUSH Q24H [facility] Stop: 06/22/20 20:01 Last Admin: 06/15/20 01:43 Dose: Not Given Documented by: Sodium Chloride (Normal Saline) 1,000 mls @ 100 mls/hr IV ASDIRECTED MARLINE Last Infusion: 06/13/20 20:10 Dose: 70 mls/hr Documented by: Sodium Chloride (Normal Saline) 100 mls @ 70 mls/hr IV ASDIRECTED [facility] REMDESIVIR (EUA) 200 mg/ (Sodium Chloride) 250 mls @ 250 mls/hr IV ONETIME STA Stop: 06/13/20 19:38 Last Admin: 06/13/20 22:16 Dose: 250 mls/hr Documented by: Tocilizumab 800 mg/ Sodium (Chloride) 100 mls @ 100 mls/hr IV Q12H [facility] Stop: 06/14/20 12:29 Last Admin: 06/14/20 11:14 Dose: 100 mls/hr Documented by: Sodium Chloride (Normal Saline) 1,000 mls @ 100 mls/hr IV ASDIRECTED [facility] Last Admin: 06/15/20 03:40 Dose: 100 mls/hr Documented by: Sodium Chloride (Normal Saline) 250 mls @ 20 mls/hr IV ASDIRECTED [facility] Sodium Chloride (Normal Saline) 250 mls @ 100 mls/hr IV ASDIRECTED [facility] Sodium Chloride (Normal Saline) Confirm Administered Dose 250 mls @ as directed .ROUTE .STK-MED ONE Stop: 06/15/20 17:24 Last Admin: 06/15/20 17:58 Dose: 100 mls/hr Documented by: Insulin Glargine (Lantus) 5 unit SUBCUT BEDTIME [facility] Last Admin: 06/13/20 22:19 Dose: 5 units Documented by: Insulin Glargine (Lantus) 15 unit SUBCUT BEDTIME [facility] Last Admin: 06/15/20 01:16 Dose: 15 units Documented by: Insulin Human Lispro (Humalog) 10 unit SUBCUT ONETIME ONE Stop: 06/14/20 21:05 Last Admin: 06/14/20 22:00 Dose: 10 units Documented by: Insulin Human Lispro (Humalog) 10 unit SUBCUT TIDAC [facility] Last Admin: 06/15/20 11:36 Dose: 10 units Documented by: Insulin Human Lispro (Humalog) 8 unit SUBCUT ONETIME ONE Stop: 06/15/20 15:23 Last Admin: 06/15/20 15:22 Dose: 8 unit Documented by: Iopamidol (Isovue-370 (76%)) 100 ml IVPUSH ONETIME ONE Stop: 06/13/20 18:05 Last Admin: 06/13/20 18:58 Dose: 100 ml Documented by: Methylprednisolone Sodium Succinate (Solu-Medrol) 40 mg IVPUSH Q8H [facility] Last Admin: 06/15/20 13:27 Dose: 40 mg Documented by: Metoprolol Tartrate (Lopressor) 50 mg PO ONETIME ONE Stop: 06/15/20 13:25 Last Admin: 06/15/20 15:21 Dose: Not Given Documented by: Non-Formulary Medication (Metoprolol Succinate) 100 mg PO DAILY [facility] Sodium Chloride (Sodium Chloride 3%) 4 ml NEB ONETIME ONE Stop: 06/14/20 06:01 Last Admin: 06/14/20 06:11 Dose: 4 ml Documented by: Tocilizumab (Actemra) 800 mg IV Q12HR [facility] Stop: 06/14/20 09:01 - Exam Quality Assessment: No: Supplemental Oxygen General: Alert, Oriented HEENT: Pupils Equal, Mucous Membr. Moist/[place] Neck: Supple Lungs: Normal Respiratory Effort, Wheezing Cardiovascular: Regular Rate, Regular Rhythm GI/Abdominal Exam: Normal Bowel Sounds, Soft, Non-Tender, No Distention Extremities: Normal Inspection, Normal Range of Motion, Non-Tender, No Pedal Edema, Normal Capillary Refill Skin: Warm, Dry, Intact Psy/Mental Status: Alert, Normal Affect, Normal Mood Sepsis Event Note - Evaluation Sepsis Screening Result: No Definite Risk - Focused Exam Vital Signs: Vital Signs Temp Temp Pulse Pulse Resp BP BP 06/16/20 09:40 98 145/81 H 06/16/20 09:37 145/81 H 06/16/20 08:25 06/16/20 06:24 06/16/20 05:30 97.9 F 69 15 132/78 06/16/20 01:30 98.2 F 63 15 133/81 Pulse Ox Pulse Ox 06/16/20 09:40 06/16/20 09:37 06/16/20 08:25 90 L 06/16/20 06:24 93 L 06/16/20 05:30 94 L 06/16/20 01:30 93 L - Problem List & Annotations (1) Acute hypoxemic respiratory failure due to COVID-19 SNOMED Code(s): 670727653 Code(s): U07.1 - COVID-19; J96.01 - ACUTE RESPIRATORY FAILURE WITH HYPOXIA Status: Acute Current Visit: Yes (2) Bilateral pneumonia SNOMED Code(s): 692211880 Code(s): J18.9 - PNEUMONIA, UNSPECIFIED ORGANISM Status: Acute Current Vi sit: Yes (3) Diabetes mellitus SNOMED Code(s): 35857910 Code(s): E11.9 - TYPE 2 DIABETES MELLITUS WITHOUT COMPLICATIONS Status: Acute Current Visit: Yes (4) Hypertension SNOMED Code(s): 26940775 Code(s): I10 - ESSENTIAL (PRIMARY) HYPERTENSION Status: Acute Current Visit: Yes (5) Hyponatremia SNOMED Code(s): 64724702 Code(s): E87.1 - HYPO-OSMOLALITY AND HYPONATREMIA Status: Acute Current Visit: Yes - Problem List Review Problem List Initiated/Reviewed/Updated: Yes - My Orders Last 24 Hours: My Active Orders 06/15/20 17:00 Insulin Lispro [HumaLOG] 12 unit SUBCUT TIDAC 06/15/20 21:00 Insulin Glarg,Human.Rec.Analog [LantUS] 20 unit SUBCUT BEDTIME 06/16/20 07:00 predniSONE 40 mg PO WITHBREAKFAST 06/17/20 05:11 C-REACTIVE PROTEIN [CHEM] AM CBC WITH AUTO DIFF [HEME] AM CMP [COMPREHENSIVE METABOLIC PN,CMP] [CHEM] AM D Dimer [D-DIMER QUANTITATIVE] [COAG] AM 06/18/20 05:11 C-REACTIVE PROTEIN [CHEM] AM CBC WITH AUTO DIFF [HEME] AM CMP [COMPREHENSIVE METABOLIC PN,CMP] [CHEM] AM D Dimer [D-DIMER QUANTITATIVE] [COAG] AM 06/19/20 05:11 C-REACTIVE PROTEIN [CHEM] AM CBC WITH AUTO DIFF [HEME] AM CMP [COMPREHENSIVE METABOLIC PN,CMP] [CHEM] AM D Dimer [D-DIMER QUANTITATIVE] [COAG] AM - Assessment Assessment:: ASSESSMENT - Symptoms started 2 weeks ago, shortness of breath - Productive cough of thick clear sputum - Decreased appetite, unable to sleep, - Clinic appointment on Tuesday - CXR + COVID - Diagnosed with pneumonia and discharged on azithromycin and q4h inhaler as needed - Completed azithromycin today and has been using inhaler q4h - COVID reported positive yesterday--> given home pulse oximeter - Called today with pulse oximetry at 80% on RA and referred to ED - Upon admission to ED pulse ox on RA 77% - BP 143/89 (107); HR 130x'; RR 25x'; T 101.2 - Placed on 4L NC - Labs on admission: - CBC: WBC 9.35 (N-89, L-5.8%), Hb 12.1, Hct 36.6, plt 335 - Chemistry: Na 130, K 3.6, Cl 91, CO2 27, BUN 7, Cr 1.1, GFR >60, Glucose 311, Ca 9.1, Mg 2.2, PO4 1.8, AG 15.7 - LFTs: T bili 0.6, AST 32, ALT 36, AP 69, T.prot 7.6, Albumin 2.5 - ABGs: 7.51/34.3/70/27/91.6 @ 36% - PaO2/FiO2: 254, mild ARDS - CT chest with bilateral patchy infiltrates throughout, no PE - On physical exam patient in obvious respiratory distress - Minimal air entry heard only as wheezing PLAN - Start Remdesivir loading dose today, maintenance tomorrow to complete 4 days total - Start daily dexamethasone to complete 10 days - Start Actemra x2 doses every 12 hours - Convalescent plasma in AM - Induced sputum in AM - ABGs in AM - Continue O2 supplementation, goal O2 sat >92% - Albuterol inhaler q4h PRN - Procalcitonin q48h - COVID labs AM - F/U cultures from ED - Keep I/Os balance negative or neutral - Start NS - Anemia work-up ordered - Goal Hb > 7 - Scheduled Accuchecks - Levemir 5u at bedtime for now - Hypoglycemia protocol - New HbA1c - Hold metformin - Continue home lisinopril - PRN hydralazine Patient will be admitted on O2 supplementation and COVID treatment. LOS will be at least 5 days as per days required of Remdesivir. 06/14/20 Inflammatory markers trending down VS stable Oxygenation stable without any increased requirements Electrolytes improved A1c likely higher as patient is anemic Afebrile since admission VS trend - BP: 134-151/82-89 - Tmax: 101.2 on admission - HR: 91-109x' - SatO2: >90% Intake and output - UO: 1,525 - 24h balance: +196 New lab results - WBC down from 9.35 to 6.87 - No bands - Hb down from 12.1 to 10.9 - DD up from 1.96 to 2.59 - pO2 up from 70 to 73 - ABG O2 sat stable 91.6 to 91.9 (FiO2 36-->34%) - Na stable at 130 - K up from 3.6 to 4.5 - Gap closed from 15.6 to 13.5 - Mg up from 2.2 to 2.4 - PO4 up from 1.8 to 3.5 - LDH down from 464 to 372 - CRP down from 42.4 to 35.8 - A1c 8.5% - Tylenol, salicylates and ketones level normal - Glucose trend 205-328 06/15/2020 Generally patient is feeling better. Oxygen requirements are significantly lower Only on 1 L nasal cannula. unable to give convalescent plasma secondary to AB blood type. Blood sugars continue to trend up likely secondary to steroids Blood sugars are persistently in the upper 300s to 400s. Blood pressures continue to be elevated with most recent being 151/100 Continues to be afebrile Sputum Gram stain demonstrating gram-positive cocci in pairs D-dimer is down to 1.98, C-reactive protein is down to 21.3, BNP is up to 627 06/16/2020 Continued improvement and off of supplemental oxygen. He continues to have expiratory wheeze, but no shortness of breath. Received both units of convalescent plasma yesterday Blood sugars have improved to the upper 100s and low to mid 200s Sputum culture showing normal respiratory joel after day 1 C-reactive protein down to 8.4 D-dimer continues to decrease, 1.58 WBC 7.6 - Plan Plan:: Bilateral pneumonia due to COVID-19 virus Acute hypoxemic respiratory failure due to COVID-19 Respiratory alkalosis Mild ARDS - Continue Remdesivir day 4/5 -prednisone 40 mg daily secondary to severe hyperglycemia - Actemra completed -Convalescent plasma 2 units given - F/U sputum and admission cultures -Continue Rocephin and azithromycin - Monitor l O2 sat >92% - Albuterol inhaler q4h PRN - Procalcitonin q48h -No labs tomorrow - Keep I/Os balance negative or neutral High anion gap metabolic acidosis-resolved Metabolic alkalosis-resolved Hyponatremia-stable - Tylenol, salicylates and ketones level ordered -Stop NS Normocytic normochromic anemia - Anemia work-up ordered and pending - Goal Hb > 7 Diabetes mellitus, [id number]-3.5% - Scheduled Accuchecks - Increase Levemir to 20u at bedtime -Humalog 12 units with each meal -Add sliding scale insulin - Hypoglycemia protocol - Continue to hold metformin Hypertension - Continue home lisinopril - home metoprolol succinate 50 mg daily - PRN hydralazine PROPHYLAXIS DVT-Lovenox GI- continue home omeprazole CODE STATUS: FULL CODE DISPOSITION: Patient will remain admitted on O2 supplementation and COVID treatment. LOS will be at least 5 days as per days required of Remdesivir.
[2020-06-16] MEDS: LORazepam 1 MG Tab PO SCH (22:05)
[2020-06-16] MEDS: REMDESIVIR (EUA) 100 MG in Sodium Chloride 0.9% 100 ML IV SCH (22:05)
[2020-06-16] MEDS: Insulin Glarg,Human.Rec.Analog 100 Unit/ML SUBCUT SCH (22:06)
[2020-06-17] MEDS: Albuterol 6.7 GM Inhaler INH SCH ×3 (01:39→08:20)
[2020-06-17] MEDS: predniSONE 20 MG Tab PO SCH (06:22)
[2020-06-17] MEDS: Insulin Lispro 100 Units/ML 3 ML Vial SUBCUT SCH ×8 (06:24→21:24)
[2020-06-17] MEDS: cefTRIAXone 2 GM in Sodium Chloride 0.9% 100 ML IV SCH (08:55)
[2020-06-17] MEDS: Lisinopril 10 MG Tab PO SCH (08:58)
[2020-06-17] MEDS: Metoprolol Succinate 50 MG Tab.ER PO SCH (08:58)
[2020-06-17] MEDS: Enoxaparin 40 MG/0.4 ML Syringe SUBCUT SCH (08:59)
[2020-06-17] MEDS ORDERED: Albuterol 6.7 GM Inhaler INH PRN (09:06)
[2020-06-17] MEDS: Azithromycin 500 MG in Sodium Chloride 0.9% 250 ML IV SCH (09:45)
--- NOTE | 2020-06-17 10:18 | PCM.PN ---
- General Info Date of Service: 06/17/20 Admission Dx/Problem (Free Text): COVID 19 Subjective Update: Patient continues to improve. He is on his last dose of remdesivir and is ready for discharge tomorrow. He has no complaints. Functional Status: Reports: Pain Controlled - Review of Systems General: Reports: No Symptoms HEENT: Reports: No Symptoms Pulmonary: Reports: No Symptoms Cardiovascular: Reports: No Symptoms Musculoskeletal: Reports: No Symptoms - Patient Data Vitals - Most Recent: Last Vital Signs Temp 97.9 F 06/17/20 07:22 Pulse 87 06/17/20 08:58 Resp 20 06/17/20 07:22 BP 145/79 H 06/17/20 08:58 Pulse Ox 92 L 06/17/20 08:52 Weight - Most Recent: 88.541 kg I&O - Last 24 Hours: Intake & Output 06/16/20 06/17/20 06/17/20 22:59 06:59 14:59 Intake Total 3050 900 Output Total 3200 2500 Balance -150 -1600 Lab Results Last 24 Hours: Laboratory Results - last 24 hr 06/16/20 06/16/20 06/16/20 Range/Units 11:49 17:01 21:57 POC Glucose 257 H 225 H 284 H (70-105) mg/dL 06/17/20 Range/Units 06:24 POC Glucose 128 H (70-105) mg/dL Clark Results Last 24 Hours: Microbiology 06/13/20 17:10 Aerobic Blood Culture - Preliminary Blood - Venous NO GROWTH AFTER 3 DAYS Anaerobic Blood Culture - Preliminary NO GROWTH AFTER 3 DAYS 06/13/20 17:30 Aerobic Blood Culture - Preliminary Blood - Venous - Lab Draw NO GROWTH AFTER 3 DAYS Anaerobic Blood Culture - Preliminary NO GROWTH AFTER 3 DAYS 06/14/20 06:20 Gram Stain - Final Sputum - Induced Sputum Culture - Preliminary Med Orders - Current: Current Medications Acetaminophen (Tylenol) 650 mg PO Q4H PRN PRN Reason: Pain (Mild 1-3)/fever Albuterol (Proventil Hfa) 0 gm INH Q4H PRN PRN Reason: Shortness of Breath Enoxaparin Sodium (Lovenox) 40 mg SUBCUT DAILY [facility] Last Admin: 06/17/20 08:59 Dose: 40 mg Documented by: REMDESIVIR (EUA) 100 mg/ (Sodium Chloride) 100 mls @ 100 mls/hr IV Q24H [facility] Stop: 06/17/20 22:59 Last Admin: 06/16/20 22:05 Dose: 100 mls/hr Documented by: Ceftriaxone Sodium 2 gm/ (Sodium Chloride) 100 mls @ 200 mls/hr IV Q24H [facility] Stop: 06/19/20 08:29 Last Admin: 06/17/20 08:55 Dose: 200 mls/hr Documented by: Insulin Glargine (Lantus) 20 unit SUBCUT BEDTIME [facility] Last Admin: 06/16/20 22:06 Dose: 20 units Documented by: Insulin Human Lispro (Humalog) 0 unit SUBCUT QIDACANDBED [facility]; Protocol Last Admin: 06/17/20 06:24 Dose: Not Given Documented by: Insulin Human Lispro (Humalog) 10 unit SUBCUT TIDAC [facility] Last Admin: 06/17/20 08:56 Dose: 10 units Documented by: Lisinopril (Prinivil) 10 mg PO DAILY [facility] Last Admin: 06/17/20 08:58 Dose: 10 mg Documented by: Lorazepam (Ativan) 2 mg PO BEDTIME [facility] Last Admin: 06/16/20 22:05 Dose: 2 mg Documented by: Metoprolol Succinate (Toprol Xl) 100 mg PO DAILY [facility] Last Admin: 06/17/20 08:58 Dose: 100 mg Documented by: Ondansetron HCl (Zofran Odt) 4 mg PO Q6H PRN PRN Reason: nausea, able to take PO Ondansetron HCl (Zofran) 4 mg IV Q6H PRN PRN Reason: Nausea/Vomiting Prednisone (Prednisone) 40 mg PO WITHBREAKFAST [facility] Last Admin: 06/17/20 06:22 Dose: 40 mg Documented by: Sodium Chloride (Saline Flush) 10 ml FLUSH ASDIRECTED PRN PRN Reason: Keep Vein Open Last Admin: 06/13/20 18:58 Dose: 10 ml Documented by: Discontinued Medications Albuterol (Proventil Neb Soln) Confirm Administered Dose 2.5 mg .ROUTE .STK-MED ONE Stop: 06/14/20 06:06 Last Admin: 06/14/20 06:21 Dose: 2.5 mg Documented by: Albuterol (Proventil Hfa) 0 gm INH Q4H [facility] Last Admin: 06/14/20 16:37 Dose: 2 puff Documented by: Albuterol (Proventil Hfa) 0 gm INH Q4H [facility] Last Admin: 06/17/20 08:20 Dose: 2 puff Documented by: Dexamethasone (Dexamethasone) 6 mg IVPUSH Q24H [facility] Stop: 06/22/20 20:01 Last Admin: 06/15/20 01:43 Dose: Not Given Documented by: Sodium Chloride (Normal Saline) 1,000 mls @ 100 mls/hr IV ASDIRECTED [facility] Last Infusion: 06/13/20 20:10 Dose: 70 mls/hr Documented by: Sodium Chloride (Normal Saline) 100 mls @ 70 mls/hr IV ASDIRECTED [facility] REMDESIVIR (EUA) 200 mg/ (Sodium Chloride) 250 mls @ 250 mls/hr IV ONETIME [facility] Stop: 06/13/20 19:38 Last Admin: 06/13/20 22:16 Dose: 250 mls/hr Documented by: Tocilizumab 800 mg/ Sodium (Chloride) 100 mls @ 100 mls/hr IV Q12H [facility] Stop: 06/14/20 12:29 Last Admin: 06/14/20 11:14 Dose: 100 mls/hr Documented by: Sodium Chloride (Normal Saline) 1,000 mls @ 100 mls/hr IV ASDIRECTED [facility] Last Admin: 06/15/20 03:40 Dose: 100 mls/hr Documented by: Sodium Chloride (Normal Saline) 250 mls @ 20 mls/hr IV ASDIRECTED [facility] Azithromycin 500 mg/ Sodium (Chloride) 250 mls @ 250 mls/hr IV Q24H [facility] Stop: 06/17/20 08:59 Last Admin: 06/17/20 09:45 Dose: 250 mls/hr Documented by: Sodium Chloride (Normal Saline) 250 mls @ 100 mls/hr IV ASDIRECTED [facility] Sodium Chloride (Normal Saline) Confirm Administered Dose 250 mls @ as directed .ROUTE .STK-MED ONE Stop: 06/15/20 17:24 Last Admin: 06/15/20 17:58 Dose: 100 mls/hr Documented by: Insulin Glargine (Lantus) 5 unit SUBCUT BEDTIME [facility] Last Admin: 06/13/20 22:19 Dose: 5 units Documented by: Insulin Glargine (Lantus) 15 unit SUBCUT BEDTIME [facility] Last Admin: 06/15/20 01:16 Dose: 15 units Documented by: Insulin Human Lispro (Humalog) 10 unit SUBCUT ONETIME ONE Stop: 06/14/20 21:05 Last Admin: 06/14/20 22:00 Dose: 10 units Documented by: Insulin Human Lispro (Humalog) 10 unit SUBCUT TIDAC [facility] Last Admin: 06/15/20 11:36 Dose: 10 units Documented by: Insulin Human Lispro (Humalog) 12 unit SUBCUT TIDAC [facility] Last Admin: 06/17/20 09:08 Dose: Not Given Documented by: Insulin Human Lispro (Humalog) 8 unit SUBCUT ONETIME ONE Stop: 06/15/20 15:23 Last Admin: 06/15/20 15:22 Dose: 8 unit Documented by: Iopamidol (Isovue-370 (76%)) 100 ml IVPUSH ONETIME ONE Stop: 06/13/20 18:05 Last Admin: 06/13/20 18:58 Dose: 100 ml Documented by: Methylprednisolone Sodium Succinate (Solu-Medrol) 40 mg IVPUSH Q8H [facility] Last Admin: 06/15/20 13:27 Dose: 40 mg Documented by: Metoprolol Tartrate (Lopressor) 50 mg PO ONETIME ONE Stop: 06/15/20 13:25 Last Admin: 06/15/20 15:21 Dose: Not Given Documented by: Non-Formulary Medication (Metoprolol Succinate) 100 mg PO DAILY [facility] Sodium Chloride (Sodium Chloride 3%) 4 ml NEB ONETIME ONE Stop: 06/14/20 06:01 Last Admin: 06/14/20 06:11 Dose: 4 ml Documented by: Tocilizumab (Actemra) 800 mg IV Q12HR [facility] Stop: 06/14/20 09:01 - Exam Quality Assessment: No: Supplemental Oxygen General: Alert, Oriented HEENT: Pupils Equal, Mucous Membr. Moist/[place] Neck: Supple Lungs: Clear to Auscultation, Normal Respiratory Effort, Wheezing Cardiovascular: Regular Rate, Regular Rhythm GI/Abdominal Exam: Normal Bowel Sounds, Soft, Non-Tender, No Distention Extremities: Normal Inspection, Normal Range of Motion, Non-Tender, No Pedal Edema, Normal Capillary Refill Skin: Warm, Dry, Intact Neurological: No New Focal Deficit Psy/Mental Status: Alert, Normal Affect, Normal Mood Sepsis Event Note - Evaluation Sepsis Screening Result: No Definite Risk - Focused Exam Vital Signs: Vital Signs Temp Pulse Resp BP Pulse Ox Pulse Ox 06/17/20 08:58 87 145/79 H 06/17/20 08:52 87 145/79 H 92 L 06/17/20 08:33 95 06/17/20 07:22 97.9 F 82 20 154/96 H 94 L 06/17/20 06:19 98.4 F 79 14 128/92 H 92 L - Problem List & Annotations (1) Acute hypoxemic respiratory failure due to COVID-19 SNOMED Code(s): 867330428 Code(s): U07.1 - COVID-19; J96.01 - ACUTE RESPIRATORY FAILURE WITH HYPOXIA Status: Acute Current Visit: Yes (2) Bilateral pneumonia SNOMED Code(s): 334543854 Code(s): J18.9 - PNEUMONIA, UNSPECIFIED ORGANISM Status: Acute Current Visit: Yes (3) Diabetes mellitus SNOMED Code(s): 56737444 Code(s): E11.9 - TYPE 2 DIABETES MELLITUS WITHOUT COMPLICATIONS Status: Acute Current Visit: Yes (4) Hypertension SNOMED Code(s): 73480177 Code(s): I10 - ESSENTIAL (PRIMARY) HYPERTENSION Status: Acute Current Visit: Yes (5) Hyponatremia SNOMED Code(s): 85641268 Code(s): E87.1 - HYPO-OSMOLALITY AND HYPONATREMIA Status: Acute Current Visit: Yes - Problem List Review Problem List Initiated/Reviewed/Updated: Yes - My Orders Last 24 Hours: My Active Orders 06/17/20 07:30 Insulin Lispro [HumaLOG] 10 unit SUBCUT TIDAC 06/17/20 09:06 Albuterol [Proventil HFA] See Dose Instructions INH Q4H PRN 06/17/20 09:07 RT Post Treatment Assessment [RC] Click to Edit RT Pre-Treatment Assessment [RC] Click to Edit 06/17/20 10:15 Consult to Diabetic Nurse Specialist [CONS] Routine - Assessment Assessment:: ASSESSMENT - Symptoms started 2 weeks ago, shortness of breath - Productive cough of thick clear sputum - Decreased appetite, unable to sleep, - Clinic appointment on Tuesday - CXR + COVID - Diagnosed with pneumonia and discharged on azithromycin and q4h inhaler as needed - Completed azithromycin today and has been using inhaler q4h - COVID reported positive yesterday--> given home pulse oximeter - Called today with pulse oximetry at 80% on RA and referred to ED - Upon admission to ED pulse ox on RA 77% - BP 143/89 (107); HR 130x'; RR 25x'; T 101.2 - Placed on 4L NC - Labs on admission: - CBC: WBC 9.35 (N-89, L-5.8%), Hb 12.1, Hct 36.6, plt 335 - Chemistry: Na 130, K 3.6, Cl 91, CO2 27, BUN 7, Cr 1.1, GFR >60, Glucose 311, Ca 9.1, Mg 2.2, PO4 1.8, AG 15.7 - LFTs: T bili 0.6, AST 32, ALT 36, AP 69, T.prot 7.6, Albumin 2.5 - ABGs: 7.51/34.3/70/27/91.6 @ 36% - PaO2/FiO2: 254, mild ARDS - CT chest with bilateral patchy infiltrates throughout, no PE - On physical exam patient in obvious respiratory distress - Minimal air entry heard only as wheezing PLAN - Start Remdesivir loading dose today, maintenance tomorrow to complete 4 days total - Start daily dexamethasone to complete 10 days - Start Actemra x2 doses every 12 hours - Convalescent plasma in AM - Induced sputum in AM - ABGs in AM - Continue O2 supplementation, goal O2 sat >92% - Albuterol inhaler q4h PRN - Procalcitonin q48h - COVID labs AM - F/U cultures from ED - Keep I/Os balance negative or neutral - Start NS - Anemia work-up ordered - Goal Hb > 7 - Scheduled Accuchecks - Levemir 5u at bedtime for now - Hypoglycemia protocol - New HbA1c - Hold metformin - Continue home lisinopril - PRN hydralazine Patient will be admitted on O2 supplementation and COVID treatment. LOS will be at least 5 days as per days required of Remdesivir. 06/14/20 Inflammatory markers trending down VS stable Oxygenation stable without any increased requirements Electrolytes improved A1c likely higher as patient is anemic Afebrile since admission VS trend - BP: 134-151/82-89 - Tmax: 101.2 on admission - HR: 91-109x' - SatO2: >90% Intake and output - UO: 1,525 - 24h balance: +196 New lab results - WBC down from 9.35 to 6.87 - No bands - Hb down from 12.1 to 10.9 - DD up from 1.96 to 2.59 - pO2 up from 70 to 73 - ABG O2 sat stable 91.6 to 91.9 (FiO2 36-->34%) - Na stable at 130 - K up from 3.6 to 4.5 - Gap closed from 15.6 to 13.5 - Mg up from 2.2 to 2.4 - PO4 up from 1.8 to 3.5 - LDH down from 464 to 372 - CRP down from 42.4 to 35.8 - A1c 8.5% - Tylenol, salicylates and ketones level normal - Glucose trend 205-328 06/15/2020 Generally patient is feeling better. Oxygen requirements are significantly lower Only on 1 L nasal cannula. unable to give convalescent plasma secondary to AB blood type. Blood sugars continue to trend up likely secondary to steroids Blood sugars are persistently in the upper 300s to 400s. Blood pressures continue to be elevated with most recent being 151/100 Continues to be afebrile Sputum Gram stain demonstrating gram-positive cocci in pairs D-dimer is down to 1.98, C-reactive protein is down to 21.3, BNP is up to 627 06/16/2020 Continued improvement and off of supplemental oxygen. He continues to have expiratory wheeze, but no shortness of breath. Received both units of convalescent plasma yesterday Blood sugars have improved to the upper 100s and low to mid 200s Sputum culture showing normal respiratory joel after day 1 C-reactive protein down to 8.4 D-dimer continues to decrease, 1.58 WBC 7.6 06/17/2020 Patient refuses all smoking cessation material, counseling, and medication. He continues to improve and oxygenation is in the upper 80s on room air. No labs today. Blood sugars better controlled in the 100s 200s Plan discharge in the morning. - Plan Plan:: Bilateral pneumonia due to COVID-19 virus Acute hypoxemic respiratory failure due to COVID-19 Respiratory alkalosis Mild ARDS - Continue Remdesivir day 02/11 -prednisone 40 mg daily - Actemra completed -Convalescent plasma 2 units given - F/U sputum and admission cultures - Rocephin day 3 of 5 and azithromycin day 3 of 3 - Monitor O2 sat >92% - Albuterol inhaler q4h PRN -No labs tomorrow - Keep I/Os balance negative or neutral High anion gap metabolic acidosis-resolved Metabolic alkalosis-resolved Hyponatremia-stable - Tylenol, salicylates and ketones level ordered Normocytic normochromic anemia - Anemia work-up as outpatient - Goal Hb > 7 Diabetes mellitus, QdS1z-3.5% - Scheduled Accuchecks - Increase Levemir to 20u at bedtime -Humalog 10 units with each meal -Add sliding scale insulin - Hypoglycemia protocol - Continue to hold metformin He will likely need to be on insulin as long as he is on prednisone. Diabetic education today. Restart his Glucophage tonight at half dose. Hypertension - Continue home lisinopril - home metoprolol succinate 50 mg daily - PRN hydralazine PROPHYLAXIS DVT-Lovenox GI- continue home omeprazole CODE STATUS: FULL CODE DISPOSITION: Patient will remain admitted on O2 supplementation and COVID treatment. LOS will be at least 5 days as per days required of Remdesivir.
[2020-06-17] MEDS ORDERED: metFORMIN 500 MG Tab PO SCH (17:00)
[2020-06-17] MEDS: LORazepam 1 MG Tab PO SCH (21:19)
[2020-06-17] MEDS: REMDESIVIR (EUA) 100 MG in Sodium Chloride 0.9% 100 ML IV SCH (21:19)
[2020-06-17] MEDS: Insulin Glarg,Human.Rec.Analog 100 Unit/ML SUBCUT SCH (21:25)
[2020-06-18] MEDS ORDERED: Insulin Lispro 100 Units/ML 3 ML Vial SUBCUT ONE ×2 (09:00→11:00)
[2020-06-18] MEDS: Metoprolol Succinate 50 MG Tab.ER PO SCH (09:01)
[2020-06-18] MEDS: Lisinopril 10 MG Tab PO SCH (09:01)
[2020-06-18] MEDS: Enoxaparin 40 MG/0.4 ML Syringe SUBCUT SCH (09:02)
[2020-06-18] MEDS: predniSONE 20 MG Tab PO SCH (09:03)
[2020-06-18] MEDS: Insulin Lispro 100 Units/ML 3 ML Vial SUBCUT SCH ×5 (09:03→11:47)
[2020-06-18] MEDS ORDERED: Amoxicillin 500 MG Cap PO SCH (09:45)
--- NOTE | 2020-06-18 09:54 | PCM.DCSUM1 ---
Discharge Summary - Hospital Course HPI Initial Comments: This is a 50-year old male with past medical history of diabetes and hypertension who was sent to the ED by primary care provider's clinic for hypoxemia. As per patient he started having shortness of breath 2 weeks ago accompanied with decreased appetite, fevers, loss of taste, difficulty sleeping and productive cough of thick clear sputum Once symptoms were not improving, he went to walk-in clinic for evaluation. At that time a CXR was performed and he was diagnosed with pneumonia and sent home with Zpack and PRN inhaler q4h, he was also tested for COVID. Called yesterday and told he was positive for COVID, home pulse oximetry sent. He was called today and told his oxygen level was too low and told to come to the ED for further evaluation. ASSESSMENT - Symptoms started 2 weeks ago, shortness of breath - Productive cough of thick clear sputum - Decreased appetite, unable to sleep, - Clinic appointment on Tuesday - CXR + COVID - Diagnosed with pneumonia and discharged on azithromycin and q4h inhaler as needed - Completed azithromycin today and has been using inhaler q4h - COVID reported positive yesterday--> given home pulse oximeter - Called today with pulse oximetry at 80% on RA and referred to ED - Upon admission to ED pulse ox on RA 77% - BP 143/89 (107); HR 130x'; RR 25x'; T 101.2 - Placed on 4L NC - Labs on admission: - CBC: WBC 9.35 (N-89, L-5.8%), Hb 12.1, Hct 36.6, plt 335 - Chemistry: Na 130, K 3.6, Cl 91, CO2 27, BUN 7, Cr 1.1, GFR >60, Glucose 311, Ca 9.1, Mg 2.2, PO4 1.8, AG 15.7 - LFTs: T bili 0.6, AST 32, ALT 36, AP 69, T.prot 7.6, Albumin 2.5 - ABGs: 7.51/34.3/70/27/91.6 @ 36% - PaO2/FiO2: 254, mild ARDS - CT chest with bilateral patchy infiltrates throughout, no PE - On physical exam patient in obvious respiratory distress - Minimal air entry heard only as wheezing PLAN Bilateral pneumonia due to COVID-19 virus Acute hypoxemic respiratory failure due to COVID-19 Respiratory alkalosis Mild ARDS - Start Remdesivir loading dose today, maintenance tomorrow to complete 4 days total - Start daily dexamethasone to complete 10 days - Start Actemra x2 doses every 12 hours - Convalescent plasma in AM - Induced sputum in AM - ABGs in AM - Continue O2 supplementation, goal O2 sat >92% - Albuterol inhaler q4h PRN - Procalcitonin q48h - COVID labs AM - F/U cultures from ED - Keep I/Os balance negative or neutral High anion gap metabolic acidosis Metabolic alkalosis Hyponatremia - Tylenol, salicylates and ketones level ordered - Start NS Normocytic normochromic anemia - Anemia work-up ordered - Goal Hb > 7 Diabetes mellitus, unknown HbA1c - Scheduled Accuchecks - Levemir 5u at bedtime for now - Hypoglycemia protocol - New HbA1c - Hold metformin Hypertension - Continue home lisinopril - PRN hydralazine PROPHYLAXIS DVT-Lovenox GI- continue home omeprazole CODE STATUS: FULL CODE DISPOSITION: Patient will be admitted on O2 supplementation and COVID treatment. LOS will be at least 5 days as per days required of Remdesivir. - Mortality Measure Prognosis:: Good Diagnosis: Stroke: No - Discharge Data Discharge Date: 06/18/20 Discharge Disposition: Home, Self-Care 01 Condition: Good - Referral to Home Health Primary Care Physician: VAN Newton - Discharge Diagnosis/Problem(s) (1) Acute hypoxemic respiratory failure due to COVID-19 SNOMED Code(s): 980263187 ICD Code: U07.1 - COVID-19; J96.01 - ACUTE RESPIRATORY FAILURE WITH HYPOXIA Status: Acute Current Visit: Yes (2) Bilateral pneumonia SNOMED Code(s): 959942643 ICD Code: J18.9 - PNEUMONIA, UNSPECIFIED ORGANISM Status: Acute Current Visit: Yes (3) Diabetes mellitus SNOMED Code(s): 36928213 ICD Code: E11.9 - TYPE 2 DIABETES MELLITUS WITHOUT COMPLICATIONS Status: Acute Current Visit: Yes (4) Hypertension SNOMED Code(s): 33709582 ICD Code: I10 - ESSENTIAL (PRIMARY) HYPERTENSION Status: Acute Current Visit: Yes (5) Hyponatremia SNOMED Code(s): 26283226 ICD Code: E87.1 - HYPO-OSMOLALITY AND HYPONATREMIA Status: Acute Current Visit: Yes - Patient Summary/Data Consults: Consultations 06/17/20 10:15 Consult to Diabetic Nurse Specialist [CONS] Routine Hospital Course: ASSESSMENT - Symptoms started 2 weeks ago, shortness of breath - Productive cough of thick clear sputum - Decreased appetite, unable to sleep, - Clinic appointment on Tuesday - CXR + COVID - Diagnosed with pneumonia and discharged on azithromycin and q4h inhaler as needed - Completed azithromycin today and has been using inhaler q4h - COVID reported positive yesterday--> given home pulse oximeter - Called today with pulse oximetry at 80% on RA and referred to ED - Upon admission to ED pulse ox on RA 77% - BP 143/89 (107); HR 130x'; RR 25x'; T 101.2 - Placed on 4L NC - Labs on admission: - CBC: WBC 9.35 (N-89, L-5.8%), Hb 12.1, Hct 36.6, plt 335 - Chemistry: Na 130, K 3.6, Cl 91, CO2 27, BUN 7, Cr 1.1, GFR >60, Glucose 311, Ca 9.1, Mg 2.2, PO4 1.8, AG 15.7 - LFTs: T bili 0.6, AST 32, ALT 36, AP 69, T.prot 7.6, Albumin 2.5 - ABGs: 7.51/34.3/70/27/91.6 @ 36% - PaO2/FiO2: 254, mild ARDS - CT chest with bilateral patchy infiltrates throughout, no PE - On physical exam patient in obvious respiratory distress - Minimal air entry heard only as wheezing PLAN - Start Remdesivir loading dose today, maintenance tomorrow to complete 4 days total - Start daily dexamethasone to complete 10 days - Start Actemra x2 doses every 12 hours - Convalescent plasma in AM - Induced sputum in AM - ABGs in AM - Continue O2 supplementation, goal O2 sat >92% - Albuterol inhaler q4h PRN - Procalcitonin q48h - COVID labs AM - F/U cultures from ED - Keep I/Os balance negative or neutral - Start NS - Anemia work-up ordered - Goal Hb > 7 - Scheduled Accuchecks - Levemir 5u at bedtime for now - Hypoglycemia protocol - New HbA1c - Hold metformin - Continue home lisinopril - PRN hydralazine Patient will be admitted on O2 supplementation and COVID treatment. LOS will be at least 5 days as per days required of Remdesivir. 06/14/20 Inflammatory markers trending down VS stable Oxygenation stable without any increased requirements Electrolytes improved A1c likely higher as patient is anemic Afebrile since admission VS trend - BP: 134-151/82-89 - Tmax: 101.2 on admission - HR: 91-109x' - SatO2: >90% Intake and output - UO: 1,525 - 24h balance: +196 New lab results - WBC down from 9.35 to 6.87 - No bands - Hb down from 12.1 to 10.9 - DD up from 1.96 to 2.59 - pO2 up from 70 to 73 - ABG O2 sat stable 91.6 to 91.9 (FiO2 36-->34%) - Na stable at 130 - K up from 3.6 to 4.5 - Gap closed from 15.6 to 13.5 - Mg up from 2.2 to 2.4 - PO4 up from 1.8 to 3.5 - LDH down from 464 to 372 - CRP down from 42.4 to 35.8 - A1c 8.5% - Tylenol, salicylates and ketones level normal - Glucose trend 205-328 06/15/2020 Generally patient is feeling better. Oxygen requirements are significantly lower Only on 1 L nasal cannula. unable to give convalescent plasma secondary to AB blood type. Blood sugars continue to trend up likely secondary to steroids Blood sugars are persistently in the upper 300s to 400s. Blood pressures continue to be elevated with most recent being 151/100 Continues to be afebrile Sputum Gram stain demonstrating gram-positive cocci in pairs D-dimer is down to 1.98, C-reactive protein is down to 21.3, BNP is up to 627 06/16/2020 Continued improvement and off of supplemental oxygen. He continues to have expiratory wheeze, but no shortness of breath. Received both units of convalescent plasma yesterday Blood sugars have improved to the upper 100s and low to mid 200s Sputum culture showing normal respiratory joel after day 1 C-reactive protein down to 8.4 D-dimer continues to decrease, 1.58 WBC 7.6 06/17/2020 Patient refuses all smoking cessation material, counseling, and medication. He continues to improve and oxygenation is in the upper 80s on room air. No labs today. Blood sugars better controlled in the 100s 200s Plan discharge in the morning. 06/18/2020 Haemophilus influenza beta-lactamase negative was cultured from his sputum. This should be sensitive to amoxicillin and he was switched over to amoxicillin on day of discharge. He will finish a 7-day course. He will also finish a 10- day course of steroids, but his blood sugars have continued to be elevated. He will go home on Lantus 20 units daily and Humalog 5 units with each meal. He will check his blood sugars closely multiple times a day to avoid hypoglycemia. Counseled patient to wear a mask anytime he is with other people. - Plan Plan:: Bilateral pneumonia due to COVID-19 virus Acute hypoxemic respiratory failure due to COVID-19 Respiratory alkalosis Mild ARDS -Remdesivir completed -prednisone 40 mg daily for 10 days - Actemra completed -Convalescent plasma 2 units given -Amoxicillin 1 g 3 times daily for 4 more days - Albuterol inhaler q4h PRN High anion gap metabolic acidosis-resolved Metabolic alkalosis-resolved Hyponatremia-stable - Tylenol, salicylates and ketones level normal Normocytic normochromic anemia - Anemia work-up as outpatient Diabetes mellitus, YxC6q-4.5% - Scheduled Accuchecks - Increase Levemir to 20u at bedtime -Humalog 5 units with each meal -Restart metformin He will likely need to be on insulin as long as he is on prednisone. Diabetic education today. Hypertension - Continue lisinopril -Continue metoprolol XL - Patient Instructions Diet: Diabetic Diet Activity: As Tolerated Driving: May Drive Today Showering/Bathing: May Shower Other/Special Instructions: Follow-up with primary care provider in 1 to 2 weeks. Follow your blood sugars very closely. If your blood sugars start to decrease you will need to contact your primary care provider to decrease your insulin. Start with Lantus 20 units a day and Humalog 5 units with each meal. Check blood sugars at least 4 times a day. - Discharge Plan *PRESCRIPTION DRUG MONITORING PROGRAM REVIEWED*: No *COPY OF PRESCRIPTION DRUG MONITORING REPORT IN PATIENT LISA: No Prescriptions/Med Rec: Amoxicillin 1,000 mg PO TID #24 tab Insulin Lispro [HumaLOG] 5 unit SUBCUT TIDAC #1 vial Syring W-Ndl,Disp,Insul,0.3 ml [Insulin Syringe] 1 each MC TIDAC #100 disp.syrin Insulin Glarg,Human.Rec.Analog [Lantus] 20 unit SUBCUT BEDTIME #1 vial predniSONE 40 mg PO WITHBREAKFAST #8 tablet Albuterol [Proventil HFA] 2 puff INH Q4H PRN #1 inhaler PRN Reason: Shortness Of Breath Home Medications: Home Meds Aspirin 81 mg PO DAILY 06/13/20 [History] Codeine Phosphate/Guaifenesin [Codeine-Guaifen 10-100 mg/5 ml] 5 ml PO Q4H PRN 06/13/20 [History] Omeprazole 20 mg PO DAILY 06/13/20 [History] lisinopriL [Lisinopril] 10 mg PO DAILY 06/13/20 [History] metFORMIN HCl [Metformin HCl] 2,000 mg PO DAILY 06/13/20 [History] tadalafiL [Cialis] 2.5 mg PO DAILY PRN 06/13/20 [History] Albuterol [Proventil HFA] 2 puff INH Q4H PRN #1 inhaler 06/18/20 [Rx] Amoxicillin 1,000 mg PO TID #24 tab 06/18/20 [Rx] Insulin Glarg,Human.Rec.Analog [Lantus] 20 unit SUBCUT BEDTIME #1 vial 06/18/20 [Rx] Insulin Lispro [HumaLOG] 5 unit SUBCUT TIDAC #1 vial 06/18/20 [Rx] LORazepam [Ativan] 2 mg PO BEDTIME tablet 06/18/20 [Rx] Metoprolol Succinate [Toprol XL 50mg] 100 mg PO DAILY tab.er 06/18/20 [Rx] Syring W-Ndl,Disp,Insul,0.3 ml [Insulin Syringe] 1 each TIDAC #100 disp.syrin 06/18/20 [Rx] predniSONE 40 mg PO WITHBREAKFAST #8 tablet 06/18/20 [Rx] Oxygen Therapy Mode: Room Air Patient Handouts: COVID-19 Frequently Asked Questions, COVID-19, Sepsis, Diagnosis, Adult, Steps to Quit Smoking, Prevent the Spread of COVID-19 if You Are Sick - CDC, Hypoglycemia, [id number] Forms: ED Department Discharge Referrals: Vanesa Ludwig PA-C [Primary Care Provider] - 06/25/20 1:45 pm (Follow up with Vanesa Ludwig PA-C at 145PM MT check in at 130PM) - Discharge Summary/Plan Comment DC Time >30 min.: Yes Discharge Summary/Plan Comment: Discharged home in good condition. Follow-up with primary care provider next week. Follow blood sugars closely. - General Info Date of Service: 06/18/20 Admission Dx/Problem (Free Text: COVID 19 Subjective Update: Patient is feeling well. Received last dose of remdesivir. He is off oxygen supplementation. Functional Status: Reports: Pain Controlled - Review of Systems General: Reports: No Symptoms HEENT: Reports: No Symptoms Pulmonary: Reports: No Symptoms Cardiovascular: Reports: No Symptoms Gastrointestinal: Reports: No Symptoms Musculoskeletal: Reports: No Symptoms Skin: Reports: No Symptoms Neurological: Reports: No Symptoms Psychiatric: Reports: No Symptoms - Patient Data Vitals - Most Recent: Last Vital Signs Temp 98.2 F 06/18/20 07:31 Pulse 81 06/18/20 09:01 Resp 20 06/18/20 07:31 BP 136/94 H 06/18/20 09:01 Pulse Ox 92 L 06/18/20 07:31 Weight - Most Recent: 87.725 kg I&O - Last 24 hours: Intake & Output 06/17/20 06/18/20 06/18/20 22:59 06:59 14:59 Intake Total 1250 800 Output Total 1000 3450 Balance 250 -2650 Lab Results - Last 24 hrs: Laboratory Results - last 24 hr 06/17/20 06/17/20 06/17/20 Range/Units 11:10 12:51 17:30 POC Glucose 326 H 245 H 278 H (70-105) mg/dL 06/17/20 06/18/20 Range/Units 21:23 06:04 POC Glucose 221 H 129 H (70-105) mg/dL ROSENDO Results - Last 24 hrs: Microbiology 06/13/20 17:10 Aerobic Blood Culture - Preliminary Blood - Venous NO GROWTH AFTER 4 DAYS Anaerobic Blood Culture - Preliminary NO GROWTH AFTER 4 DAYS 06/13/20 17:30 Aerobic Blood Culture - Preliminary Blood - Venous - Lab Draw NO GROWTH AFTER 4 DAYS Anaerobic Blood Culture - Preliminary NO GROWTH AFTER 4 DAYS 06/14/20 06:20 Gram Stain - Final Sputum - Induced Sputum Culture - Final Haemophilus Parainfluenzae Iii Med Orders - Current: Current Medications Acetaminophen (Tylenol) 650 mg PO Q4H PRN PRN Reason: Pain (Mild 1-3)/fever Albuterol (Proventil Hfa) 0 gm INH Q4H PRN PRN Reason: Shortness of Breath Amoxicillin (Amoxil) 1,000 mg PO Q8H [facility] Enoxaparin Sodium (Lovenox) 40 mg SUBCUT DAILY [facility] Last Admin: 06/18/20 09:02 Dose: 40 mg Documented by: Insulin Glargine (Lantus) 20 unit SUBCUT BEDTIME [facility] Last Admin: 06/17/20 21:25 Dose: 20 units Documented by: Insulin Human Lispro (Humalog) 0 unit SUBCUT QIDACANDBED [facility]; Protocol Last Admin: 06/18/20 09:04 Dose: Not Given Documented by: Insulin Human Lispro (Humalog) 10 unit SUBCUT TIDAC [facility] Last Admin: 06/18/20 09:03 Dose: Not Given Documented by: Lisinopril (Prinivil) 10 mg PO DAILY [facility] Last Admin: 06/18/20 09:01 Dose: 10 mg Documented by: Lorazepam (Ativan) 2 mg PO BEDTIME [facility] Last Admin: 06/17/20 21:19 Dose: 2 mg Documented by: Metformin HCl (Glucophage) 1,000 mg PO WITHDINNER [facility] Last Admin: 06/17/20 17:00 Dose: 1,000 mg Documented by: Metoprolol Succinate (Toprol Xl) 100 mg PO DAILY [facility] Last Admin: 06/18/20 09:01 Dose: 100 mg Documented by: Ondansetron HCl (Zofran Odt) 4 mg PO Q6H PRN PRN Reason: nausea, able to take PO Ondansetron HCl (Zofran) 4 mg IV Q6H PRN PRN Reason: Nausea/Vomiting Prednisone (Prednisone) 40 mg PO WITHBREAKFAST [facility] Last Admin: 06/18/20 09:03 Dose: 40 mg Documented by: Sodium Chloride (Saline Flush) 10 ml FLUSH ASDIRECTED PRN PRN Reason: Keep Vein Open Last Admin: 06/13/20 18:58 Dose: 10 ml Documented by: Discontinued Medications Albuterol (Proventil Neb Soln) Confirm Administered Dose 2.5 mg .ROUTE .STK-MED ONE Stop: 06/14/20 06:06 Last Admin: 06/14/20 06:21 Dose: 2.5 mg Documented by: Albuterol (Proventil Hfa) 0 gm INH Q4H [facility] Last Admin: 06/14/20 16:37 Dose: 2 puff Documented by: Albuterol (Proventil Hfa) 0 gm INH Q4H [facility] Last Admin: 06/17/20 08:20 Dose: 2 puff Documented by: Dexamethasone (Dexamethasone) 6 mg IVPUSH Q24H [facility] Stop: 06/22/20 20:01 Last Admin: 06/15/20 01:43 Dose: Not Given Documented by: Sodium Chloride (Normal Saline) 1,000 mls @ 100 mls/hr IV ASDIRECTED [facility] Last Infusion: 06/13/20 20:10 Dose: 70 mls/hr Documented by: Sodium Chloride (Normal Saline) 100 mls @ 70 mls/hr IV ASDIRECTED [facility] REMDESIVIR (EUA) 100 mg/ (Sodium Chloride) 100 mls @ 100 mls/hr IV Q24H [facility] Stop: 06/17/20 22:59 Last Admin: 06/17/20 21:19 Dose: 100 mls/hr Documented by: REMDESIVIR (EUA) 200 mg/ (Sodium Chloride) 250 mls @ 250 mls/hr IV ONETIME [facility] Stop: 06/13/20 19:38 Last Admin: 06/13/20 22:16 Dose: 250 mls/hr Documented by: Tocilizumab 800 mg/ Sodium (Chloride) 100 mls @ 100 mls/hr IV Q12H [facility] Stop: 06/14/20 12:29 Last Admin: 06/14/20 11:14 Dose: 100 mls/hr Documented by: Sodium Chloride (Normal Saline) 1,000 mls @ 100 mls/hr IV ASDIRECTED [facility] Last Admin: 06/15/20 03:40 Dose: 100 mls/hr Documented by: Sodium Chloride (Normal Saline) 250 mls @ 20 mls/hr IV ASDIRECTED [facility] Ceftriaxone Sodium 2 gm/ (Sodium Chloride) 100 mls @ 200 mls/hr IV Q24H [facility] Stop: 06/19/20 08:29 Last Admin: 06/17/20 08:55 Dose: 200 mls/hr Documented by: Azithromycin 500 mg/ Sodium (Chloride) 250 mls @ 250 mls/hr IV Q24H [facility] Stop: 06/17/20 08:59 Last Admin: 06/17/20 09:45 Dose: 250 mls/hr Documented by: Sodium Chloride (Normal Saline) 250 mls @ 100 mls/hr IV ASDIRECTED [facility] Sodium Chloride (Normal Saline) Confirm Administered Dose 250 mls @ as directed .ROUTE .STK-MED ONE Stop: 06/15/20 17:24 Last Admin: 06/15/20 17:58 Dose: 100 mls/hr Documented by: Insulin Glargine (Lantus) 5 unit SUBCUT BEDTIME [facility] Last Admin: 06/13/20 22:19 Dose: 5 units Documented by: Insulin Glargine (Lantus) 15 unit SUBCUT BEDTIME [facility] Last Admin: 06/15/20 01:16 Dose: 15 units Documented by: Insulin Human Lispro (Humalog) 10 unit SUBCUT ONETIME ONE Stop: 06/14/20 21:05 Last Admin: 06/14/20 22:00 Dose: 10 units Documented by: Insulin Human Lispro (Humalog) 10 unit SUBCUT TIDAC [facility] Last Admin: 06/15/20 11:36 Dose: 10 units Documented by: Insulin Human Lispro (Humalog) 12 unit SUBCUT TIDAC [facility] Last Admin: 06/17/20 09:08 Dose: Not Given Documented by: Insulin Human Lispro (Humalog) 8 unit SUBCUT ONETIME ONE Stop: 06/15/20 15:23 Last Admin: 06/15/20 15:22 Dose: 8 unit Documented by: Insulin Human Lispro (Humalog) 5 unit SUBCUT ONETIME ONE Stop: 06/18/20 09:01 Last Admin: 06/18/20 08:58 Dose: 5 units Documented by: Iopamidol (Isovue-370 (76%)) 100 ml IVPUSH ONETIME ONE Stop: 06/13/20 18:05 Last Admin: 06/13/20 18:58 Dose: 100 ml Documented by: Methylprednisolone Sodium Succinate (Solu-Medrol) 40 mg IVPUSH Q8H [facility] Last Admin: 06/15/20 13:27 Dose: 40 mg Documented by: Metoprolol Tartrate (Lopressor) 50 mg PO ONETIME ONE Stop: 06/15/20 13:25 Last Admin: 06/15/20 15:21 Dose: Not Given Documented by: Non-Formulary Medication (Metoprolol Succinate) 100 mg PO DAILY [facility] Sodium Chloride (Sodium Chloride 3%) 4 ml NEB ONETIME ONE Stop: 06/14/20 06:01 Last Admin: 06/14/20 06:11 Dose: 4 ml Documented by: Tocilizumab (Actemra) 800 mg IV Q12HR [facility] Stop: 06/14/20 09:01 - Exam Quality Assessment: Denies: Supplemental Oxygen General: Reports: Alert, Oriented HEENT: Reports: Pupils Equal, Mucous Membr. Moist/[place] Neck: Reports: Supple Lungs: Reports: Clear to Auscultation, Normal Respiratory Effort Cardiovascular: Reports: Regular Rate, Regular Rhythm GI/Abdominal Exam: Normal Bowel Sounds, Soft, Non-Tender, No Organomegaly, No Distention Extremities: Normal Inspection, Normal Range of Motion, Non-Tender, No Pedal Edema, Normal Capillary Refill Skin: Reports: Warm, Dry, Intact Neurological: Reports: No New Focal Deficit Psy/Mental Status: Reports: Alert, Normal Affect, Normal Mood
[2020-06-18] MEDS: cefTRIAXone 2 GM in Sodium Chloride 0.9% 100 ML IV SCH (11:05)
== END 2020-06-18 11:50 | disposition home or self-care (01) | DRG 177 ==
LOC: JD.ED 15:47 → JD.MS 19:26
PROVIDERS: ADMIT Internal Medicine; ATTEND Internal Medicine
PROC: XW033E5 Introduction of Remdesivir Anti-infective into Peripheral Vein, Percutaneous Approach, New Technology Group 5 (ICD-10-PCS; principal; 2020-06-14)
PROC: XW13325 Transfusion of Convalescent Plasma (Nonautologous) into Peripheral Vein, Percutaneous Approach, New Technology Group 5 (ICD-10-PCS; 2020-06-14)
DX: U07.1 COVID-19 (principal); J12.89 Other viral pneumonia; J96.01 Acute respiratory failure with hypoxia; J18.9 Pneumonia, unspecified organism; E87.1 Hypo-osmolality and hyponatremia; E87.3 Alkalosis; E11.9 Type 2 diabetes mellitus without complications; E78.5 Hyperlipidemia, unspecified; D64.9 Anemia, unspecified; R00.0 Tachycardia, unspecified; I10 Essential (primary) hypertension
CPT/HCPCS: 36415; 36430; 36600; 71046; 71046-26; 71275; 71275-26; 80048; 80053; 80307; 82009; 82550; 82607; 82728; 82746; 82803; 82947; 82962; 83036; 83605; 83615; 83735; 83880; 84100; 84145; 84484; 85007; 85025; 85027; 85045; 85379; 85610; 86140; 86900; 86901; 87040; 87070; 87077; 87205; 93005; 94640; 94761; 96360; 99285; 99285-25; A9270-GY; J0456; J0696; J1100; J1650; J1815-GY; J2920; J3262; J7030; J7050; J7512; P9017; Q9967